=== PATIENT | female | born 1930 | race Caucasian/White ===

== ENCOUNTER 2019-04-19 21:01 | Inpatient (IN) ==
--- NOTE | 2019-04-19 22:24 | PROVIDER DOCUMENTATION ---
HPI-General Adult - General Chief Complaint: UTI Symptoms Stated Complaint: UTI Time Seen by Provider: 04/19/19 21:58 Source: patient, family Allergies/Adverse Reactions: Patient Allergies Allergy/AdvReac Type Severity Reaction Status Date / Time No Known Allergies Allergy Verified 01/25/14 17:54 Home Medications: Home Medication List Medication Instructions Recorded Confirmed Last Taken Type Losartan [Cozaar] 100 mg PO DAILY 11/11/14 04/20/19 Unknown History Docusate Sodium [Colace] 1 dose PO PRN PRN 04/20/19 04/20/19 Unknown History Furosemide [Lasix] 20 mg PO BID 04/20/19 04/20/19 Unknown History Metformin [Glucophage] 500 mg PO WSUPPER 04/20/19 04/20/19 Unknown History - History of Present Illness -Gen Adult Nature of Presenting Problems: 89 YO F who lives alone states her family came over to check on her and they said she was talking out of her head and decided to call EMS. Pt states that her home health nurse was telling her that she had a possible UTI, but had not been started on any antibiotics. Pt states possible fever. She endorses generalized weakness. she denies CP, n/v/abdominal pain. She states she normally ambulates with a walker but has been too weak to walk lately. She denies any other complaints. Location of Pain/Injury: reports: none Pain Radiation: reports: no radiation Quality of Pain: reports: none Onset/Duration: reports: 2 days ago Timing: reports: still present, getting worse Context/Activities at Onset: reports: none Modifying Factors: improves with: nothing Associated Symptoms: reports: loss of appetite, malaise, weakness. denies: cough, diarrhea, nausea, rash, shortness of breath, pain with inspiration, syncope Similar Symptoms Previously?: Yes Recently seen or treated by another doctor?: No Review of Systems - Adult - REVIEW OF SYSTEMS - ADULT Constitutional: denies: chills, fever Eyes: reports: no symptoms reported Ears, Nose, Mouth & Throat: reports: no symptoms reported Cardiovascular: denies: chest pain, palpitations, syncope Respiratory: denies: cough, dyspnea on exertion, shortness of breath, wheezing Gastrointestinal: reports: no symptoms reported Genitourinary: reports: no symptoms reported Musculoskeletal: reports: no symptoms reported Integumentary: reports: no symptoms reported Neurological: reports: other (weakness). denies: headache/migraines, numbness, syncope, tremors Past History - Adult - PAST MEDICAL HISTORY-ADULT Review of Records: reports: Old Records Reviewed, Social history reviewed & non- contributory. Cardiovascular: reports: HTN Musculoskeletal: reports: other (degenerative disc disease) Psychiatric: reports: denies history - PRIOR SURGERIES/PROCEDURES Surgical/Procedure History: denies: recent surgery - SOCIAL HISTORY Smoking: non-smoker Substance Use: denies Living Situation: alone Physical Exam-General - PHYSICAL EXAM-ADULT Initial Vital Signs Reviewed: Yes - CONSTITUTIONAL General Appearance: alert, no apparent distress - EYES Eyes: PERRL/EOMI, pink conjunctivae - HEAD, EARS, NOSE, MOUTH & THROAT HENMT: other (dry membranes) - NECK Neck: supple - RESPIRATORY Respiratory: lungs clear, normal breath sounds, no respiratory distress, no accessory muscle use - CARDIOVASCULAR Cardiovascular: regular rate, rhythm - GASTROINTESTINAL (ABDOMEN) Abdominal Exam: non tender, soft - MUSCULOSKELETAL Back Exam: no CVA tenderness Extremity: pedal edema - SKIN Integumentary: normal turgor, warm/dry, swelling, other (color change on LE consistent with arterial insuffiency) - NEUROLOGIC Neurologic: grossly normal, negative romberg's sign. negative: facial droop, focal weakness - PSYCHIATRIC Psych/Mental Status: normal mood/affect, oriented x 3 Progress - PLAN OF CARE/RESULTS Progress/Plan/Lab Results: Vital Signs - 8 hr 04/19/19 21:48 Temperature 99.6 F Pulse Rate 80 Respiratory Rate 18 Blood Pressure 166/64 O2 Sat by Pulse Oximetry 92 L Orders Category Date Time Status Cardiac Monitoring DIRECTED Care 04/19/19 22:24 Active NEWS Score 2-4:Order NEWS Lactate Series NOW Care 04/19/19 22:11 Active Nursing- Obtain EKG ONCE Care 04/19/19 22:23 Active CHEST-1 VIEW [RAD] Stat Exams 04/19/19 22:23 Ordered CBC WITH ELECTRONIC DIFF [HEME] Stat Lab 04/19/19 22:23 Uncollected COMPREHENSIVE METABOLIC PANEL [CHEM] Stat Lab 04/19/19 22:23 Uncollected INFLUENZA SCREEN A/B Stat Lab 04/19/19 22:23 Uncollected PRO B-NATRIURETIC PEPTIDE Stat Lab 04/19/19 22:23 Ordered TROPONIN T HIGH SENSITIVITY Stat Lab 04/19/19 22:23 Uncollected TSH Stat Lab 04/19/19 22:23 Uncollected URINALYSIS W/POSS RFLX CULT [URINALYSIS] Stat Lab 04/19/19 22:23 Uncollected EKG [EKG] Stat Ther 04/19/19 22:23 Ordered Result Diagrams: 05/03/19 07:10 05/03/19 07:10 - EKG 1 Time of EKG reading by physician:: 23:45 EKG Read and Signed by:: Leonel Marie EKG Interpretation (*Must complete 3 of following elements*): Abnormal Rate: 71 Rhythm: sinus rhythm with sinus arrhythmia Star: left QRS: LVH, other (widened QRS) ST Wave: normal Prior EKG Comparison: unchanged from prior (11/11/14) - CONSULTS/PCP/HOSPITALIST Notification #1 *Consult/PCP/Hospitalist*: Dr. Neal Time Discussed: 01:42 Consult Disposition: Will see in ED, Admit Departure - Departure Date of Disposition Decision: 04/20/19 Time of Disposition Decision: 00:30 DIAGNOSIS: CHF exacerbation, Pulmonary edema, Leg edema, left, Leg edema, right, UTI (urinary tract infection), NSTEMI (non-ST elevated myocardial infarction), Elevated troponin Disposition: ADMITTED INPATIENT 09 Certified Medical Emergency: Emergent Condition: Stable - Critical Care Note This patient required my direct & personal management of CC.: No Attestation - Physician/ SEAN Attestation Patient care was provided by Advanced Practice Provider:: No The physician spent face to face time with patient:: Yes Advanced Practice Provider documentation review:: Supervising physician onsite a nd consulted in the evaluation and care of this patient. The physician did have a face to face encounter with the patient.
[2019-04-19 23:05] LABS: BASO# 0.03 X1000 (0.0-0.2); BASO% 0.3 % (0.0-0.8); EOS# 0.17 X1000 (0.0-0.7); EOS% 1.8 % (0.0-10.0); HEMATOCRIT 27.6 % (37.0-47.0); HEMOGLOBIN 8.5 g/dL (12.0-16.0); IMM GRAN# 0.04 X1000 (0.0-0.04); IMM GRAN% 0.4 % (0.0-0.5); LYMPH# 0.51 X1000 (1.2-3.4); LYMPH% 5.4 % (20.5-51.1); MCH 28.7 PG (27-31); MCHC 30.8 g/dL (33-37); MCV 93.2 FL (81-99); MONO# 0.53 X1000 (0.11-0.59); MONO% 5.7 % (1.7-9.3); MPV 10.4 FL (7.4-10.4); NEUT# 8.08 X1000 (1.4-6.5); NEUT% 86.4 % (42.2-75.2); PLT 363 X1000 (130-400); RBC 2.96 XMIL (4.2-5.4); RDW 14.7 % (11.5-14.5); WBC 9.36 X1000 (4.8-10.8)
[2019-04-19 23:21] LABS: ALB/GLOB RATIO 1.1; ALBUMIN 3.1 g/dL (3.5-5.0); CALCIUM 9.4 mg/dL (8.8-10.2); CREATININE 1.2 mg/dL (0.5-0.9); TOTAL BILIRUBIN 0.61 mg/dL (0.20-1.00); TOTAL PROTEIN 5.9 g/dL (6.3-8.3)
[2019-04-20 00:47] LABS: URINE SOURCE CATH
[2019-04-20] MEDS ORDERED: LASIX IV ONE (01:18)
[2019-04-20 01:23] LABS: BILIRUBIN URINE NEGATIVE (NEGATIVE); BLOOD URINE NEGATIVE (NEGATIVE); COLOR YELLOW; GLUCOSE URINE NEGATIVE (NEGATIVE); KETONE URINE NEGATIVE (NEGATIVE); LEUKOCYTES URINE TRACE (NEGATIVE); NITRITE URINE POSITIVE (NEGATIVE); PH URINE 6.5; PROTEIN URINE TRACE mg/dL (NEGATIVE); TURBIDITY URINE HAZY (CLEAR); UROBILINOGEN URINE NORMAL (NORMAL)
[2019-04-20 01:26] LABS: UR EPITHELIAL CELLS <10 /HPF (<10); URINE BACTERIA 2+ /HPF; URINE RBC <10 /HPF (<10); URINE WBC <10 /HPF (<10)
[2019-04-20] MEDS ORDERED: ROCEPHIN 1 GM in NS 50 ML IV ONE (01:39)
[2019-04-20] MEDS ORDERED: ZOFRAN IV PRN (03:55)
[2019-04-20] MEDS ORDERED: ASPIRIN PO ONE (03:55)
--- NOTE | 2019-04-20 04:34 | EKG Report ---
Test Performed on : 04/19/2019 11:44:31 PM Test Reason : CP Blood Pressure : / mmHG Vent. Rate : 071 BPM Atrial Rate : 071 BPM P-R Int : 176 ms QRS Dur : 128 ms QT Int : 416 ms P-R-T Axes : 057 -47 126 degrees QTc Int : 452 ms Normal sinus rhythm. with sinus arrhythmia. Left axis deviation Left ventricular hypertrophy with QRS widening and repolarization abnormality Inferior infarct , age undetermined Abnormal ECG When compared with ECG of 11-NOV-2014 06:25, Significant changes have occurred Unconfirmed Result
--- NOTE | 2019-04-20 05:38 | Diag Imaging Result Doc PS360 ---
EXAM: CHEST-1 VIEW HISTORY: syncope TECHNIQUE: Single view COMPARISON: 11/13/2014 FINDINGS: The heart remains enlarged. There are infiltrates throughout the left lung with basilar atelectasis and a moderate-sized pleural effusion. There is also pulmonary edema. IMPRESSION: Cardiomegaly with pulmonary edema and left pleural effusion. There could be underlying infiltrates in the left lower lobe and lingular segment of the upper lobe as well. Electronically signed by Farshad Ferrari 04/20/2019 5:36 AM
[2019-04-20] MEDS: SYNTHROID PO SCH (06:08)
--- NOTE | 2019-04-20 06:33 | Diag Imaging Result Doc PS360 ---
CT HEAD W/O CONTRAST - 04/19/2019 INDICATION: AMS COMPARISON: 11/10/2014 FINDINGS: There has been worsening in the diffuse cerebral white matter chronic microvascular ischemia. No intracranial mass or hemorrhage. The ventricles and sulci are normal in size and contour. The skull is intact. There are mucosal retention cysts in the left maxillary sinus. Trace mucous in the right maxillary sinus. Severe vascular calcification of both carotid siphons and the vertebral arteries. IMPRESSION: Worsening chronic changes. No acute process. This exam was performed using automated exposure control, adjustment of mA or kV according to patient size, and/or use of iterative reconstruction technique Electronically signed by Omar Pedro 04/20/2019 6:31 AM
--- NOTE | 2019-04-20 06:36 | HISTORY AND PHYSICAL ---
PRIMARY CARE PHYSICIAN: Benedicto Springer MD CHIEF COMPLAINT: Confusion. HISTORY OF PRESENTING ILLNESS: An 89-year-old female with a history of hypertension, anemia, and cervical spinal stenosis who was brought to the emergency department due to the patient having confusion. The patient was evaluated in the emergency department. She was still somewhat confused, and most of the history is obtained from previous records. During initial evaluation, it was noted that her troponin was also elevated. However, she had denied any headache, fever, chills, chest pain, shortness of breath, or any weight changes. PAST MEDICAL HISTORY: Includes hypertension, anemia, cervical spinal stenosis. PAST SURGICAL HISTORY: Cataract surgery. ALLERGIES: No known drug allergies. CURRENT MEDICATIONS: Include hydrochlorothiazide 25 mg p.o. daily, losartan 100 mg p.o. daily. SOCIAL HISTORY: No history of smoking, alcohol or illicit drug use. She lives alone. FAMILY HISTORY: Positive for coronary disease in the father. REVIEW OF SYSTEMS: A 14-point review of systems listed as HPI. Other systems negative. PHYSICAL EXAMINATION: GENERAL: Cooperative, friendly female. She is resting comfortably. However, she is somewhat confused. VITAL SIGNS: Temperature 99.6 degrees, pulse 80, respirations 18, blood pressure 166/64. HEENT: Atraumatic, normocephalic. Extraocular movements intact. PERRLA. NECK: No masses. CHEST: Clear to auscultation. CARDIOVASCULAR: Regular rate and rhythm. ABDOMEN: Soft. Positive bowel sounds. EXTREMITIES: Trace edema. NEUROLOGIC: She is awake, alert, oriented x2. GENITOURINARY: No bladder distention. SKIN: Warm. LABORATORIES AND STUDIES: WBC 9.36, hemoglobin 8.5, hematocrit 27.6, platelets 363,000. Sodium 134, potassium 4, chloride 94, CO2 is 26, BUN is 20, creatinine is 1.2, glucose 133. Troponin is 350. TSH is 47.94. UA is nitrite positive and +2 bacteria. ASSESSMENT: An 89-year-old elderly female with a history of hypertension, anemia, and cervical spinal stenosis who was brought to the emergency department due to confusion. She was evaluated in the emergency department. I suspected she had a urinary tract infection, and also, it was noted that her troponins were elevated. Due to these findings, she will require admission for further management. 1. Altered mental status. 2. Elevated troponin. 3. Probable urinary tract infection. 4. Hypertension. PLAN: 1. We will admit patient to PVC. 2. We will check neurological checks. 3. We will trend her troponins and consult Cardiology. 4. We will check urine cultures. Start the patient on IV antibiotics. 5. We will monitor blood pressure closely. 6. We will put the patient on DVT prophylaxis with SCDs and Lovenox. 7. We will continue to follow, reassess, and make further recommendations based on the patient's clinical course. cc: Sven Neal MD
[2019-04-20] MEDS: NS 1,000 ML IV SCH ×2 (09:52→23:02)
--- NOTE | 2019-04-20 09:53 | EKG Report ---
Test Performed on : 04/20/2019 09:39:41 AM Test Reason : elevated troponins Blood Pressure : / mmHG Vent. Rate : 060 BPM Atrial Rate : 060 BPM P-R Int : 182 ms QRS Dur : 128 ms QT Int : 482 ms P-R-T Axes : 067 -46 119 degrees QTc Int : 482 ms Sinus rhythm. with premature atrial complexes. with aberrant conduction. Left axis deviation Left ventricular hypertrophy with QRS widening and repolarization abnormality Inferior infarct (cited on or before 10-NOV-2014) Abnormal ECG When compared with ECG of 19-APR-2019 23:44, (Unconfirmed) aberrant conduction. is now present Confirmed by Billy Toledo MD ([id number]) on 04/20/2019 4:20:35 PM
[2019-04-20 10:49] LABS: BASO# 0.03 X1000 (0.0-0.2); BASO% 0.4 % (0.0-0.8); EOS# 0.31 X1000 (0.0-0.7); EOS% 3.9 % (0.0-10.0); HEMATOCRIT 28.5 % (37.0-47.0); HEMOGLOBIN 8.8 g/dL (12.0-16.0); IMM GRAN# 0.02 X1000 (0.0-0.04); IMM GRAN% 0.2 % (0.0-0.5); LYMPH# 0.39 X1000 (1.2-3.4); LYMPH% 4.9 % (20.5-51.1); MCHC 30.9 g/dL (33-37); MCV 94.1 FL (81-99); MONO# 0.76 X1000 (0.11-0.59); MONO% 9.5 % (1.7-9.3); MPV 10.5 FL (7.4-10.4); NEUT# 6.53 X1000 (1.4-6.5); NEUT% 81.1 % (42.2-75.2); PLT 346 X1000 (130-400); RBC 3.03 XMIL (4.2-5.4); RDW 14.8 % (11.5-14.5); WBC 8.04 X1000 (4.8-10.8)
[2019-04-20 11:29] LABS: ALBUMIN 2.7 g/dL (3.5-5.0); CALCIUM 9.7 mg/dL (8.8-10.2); CREATININE 1.3 mg/dL (0.5-0.9); PHOSPHORUS 3.1 mg/dL (2.7-4.5)
[2019-04-20 11:52] LABS: RETIC% 1.82 % (0.8-2.1); RETIC-HE 24.6 PG (28.2-36.6)
[2019-04-20 12:23] LABS: HEMOGLOBIN A1C 6.7 % (4.8-6.0)
[2019-04-20 13:47] LABS: ALLEN TEST YES; BE 9.2 mmoll (-3.0-3.0); BLOOD TYPE ARTERIAL; HCO3-(ACT) 32.1 mmoll (20.0-26.0); METHB 0.5 % (0.0-1.5); O2(CT) 13.8 mL/dL (15.0-23.0); O2HB 96.9 % (95.0-99.0); PCO2(98.6) 44 mmHg (35-45); PO2(98.6) 97 mmHg (60-100); SAMPLE BLOOD; SAO2 100.1 % (95.0-100.0); pH(98.6) 7.49 (7.35-7.45)
[2019-04-20 13:48] LABS: MODALITY CANNULA
--- NOTE | 2019-04-20 15:15 | CARDIOLOGY CONSULTATION ---
DATE: 04/20/2019 CHIEF COMPLAINT: Confusion. REASON FOR CONSULTATION: Elevated troponin. HISTORY: Ms. Cameron is an 89-year-old, female, who presented to the emergency room yesterday because the family noted that she had become confused. Also, the home health nurse noted that her urine was somewhat darker than usual. Her temperature was checked and it was found to be a little elevated by the home health nurse. The patient, upon presentation, had a urinalysis that showed positive nitrates and 2+ bacteria. Her chest x-ray done initially at 10:23 p.m. shows cardiomegaly with pulmonary edema and left pleural effusion, with suspected underlying infiltrates in the left lower lobe and lingular segment of the upper lobe as well. A head CT showed worsening chronic microvascular changes. No acute findings. A 12-lead electrocardiogram was done at 11:44 p.m. and it shows sinus rhythm with a nonspecific intraventricular conduction delay with left ventricular hypertrophy, left axis deviation, poor R-wave progression across the precordial leads, question of anterior scar. They checked the usual blood work. BUN was 21, creatinine 1.3. Hemoglobin A1c 6.7%. Albumin 2.7 grams/dL. LDL cholesterol 109, HDL 31. A TSH has been checked and is elevated at 47.94 micro international units/mL, which is about 10 times the upper normal. ProBNP level has been checked and is 3307 pg/mL. They checked high-sensitivity troponin levels, and the values are 350, 374, and 369 pg/mL. The patient has not reported any chest pain or shortness of breath. She does have some chronic mild puffiness of the legs. PAST MEDICAL HISTORY: Basically positive for hypertension. She also has history of chronic anemia. Her hemoglobin at the time of this admission is 8.8, normochromic, with a slightly elevated RDW. Her history is also positive for cervical spinal stenosis. PAST SURGICAL HISTORY: Cataract extraction. SOCIAL HISTORY: She is retired. She is a . Lives at home. Son lives next door to her. The one in the bedroom is the [id number], who knows her well. Not a drinker. Not a smoker. FAMILY HISTORY: Father had coronary heart disease. ALLERGIES: Negative. FAMILY PHYSICIAN: Dr. Springer. HOME MEDICATIONS: Included furosemide 20 mg twice a day, losartan 100 mg daily, metformin 500 mg with supper, and docusate. REVIEW OF SYSTEMS: The patient has been gradually slowing down as far as physical action. They just got the home health nurses to come in and give her therapy at home and ambulate with therapy. Her history is negative for any cardiovascular condition. PHYSICAL EXAMINATION: Vital Signs: Blood pressure is 125/53, temperature is 98.3 degrees, pulse rate is 61, respirations 13. General: The patient is awake, in no distress. HEENT: Unremarkable. She does have a sluggish answer when I present questions to her, and her face is slightly puffy at the level of the eyelids. She really looks hypothyroid. Neck: Neck veins are not distended. Chest: Diminished breath sounds at bases. Heart: Heart sounds are regular and rhythmic. I do not hear any definite gallop or murmur. Abdomen: Obese, nontender. Extremities: Trace brawny edema. Pulses are diminished. Neurologic: Nonfocal. Moves all 4 extremities. She is sluggish, answering questions. IMPRESSION: 1. The patient presents to the hospital with possible early septicemia or sepsis-like issues. Urinary tract infection is suspected. 2. Bilateral pleural effusions with cardiomegaly. This may relate to long-term hypertensive heart disease and diastolic heart failure. 3. The patient is evidently hypothyroid.m(Clinical Myxedema). 4. Poor functional status. 5. Elevated HS Troponin: possible non ST IA, more than likely, combination of heart failure/hypothyroidism with pericardial effusion and perhaps CAD. RECOMMENDATION: We are going to check a number of inflammatory markers. I am going to check C- reactive protein, sedimentation rate, procalcitonin. Will look at the echocardiogram. We are going to get a CT scan of the thorax. Further advice will be forthcoming. We probably would not like to be very aggressive with diuresis at this time until we get a better grasp of the whole picture. The troponin elevation is really probably inconsequential. It may relate to renal dysfunction,hypothyroidism, the heart failure itself, although the patient may well have coronary heart disease. At this point, it does not seem like we are going to be chasing that diagnosis. In addition, because of her hypothyroidism, obesity (she has a body mass index of 38.1), and her seemingly acute encephalopathy that is improving, I will check a blood gas to make sure that she is not a CO2 retainer. She has all the looks of somebody that may have chronic sleep apnea syndrome. Further advice will be forthcoming. cc: Kirk Nino MD MTDD
--- NOTE | 2019-04-20 23:11 | ECHO REPORT ---
ORDER DATE: 04/20/2019 MEASUREMENTS: Septal thickness 1.3, left ventricular internal diameter in diastole 4.8, posterior wall thickness 1.3, left ventricular internal diameter in systole 2.9, aortic root 3.6, left atrium 5.6. SUMMARY: 1. Fair quality study. 2. The aortic valve is trileaflet and demonstrates mild sclerosis with adequate aortic valve opening evident. The peak gradient across the aortic valve is 17 mmHg. Calculated aortic valve area by Doppler is greater than 2.5 cm2. The mitral valve is not well imaged, but mitral leaflets appear moderately thickened with reduced mobility. The peak diastolic gradient across the mitral valve is 8 mmHg with a mean gradient of 3.3 mmHg, at a heart rate of approximately 60 beats per minute. The calculated mitral valve area by pressure half-time method is 1.7 cm2. Mild mitral regurgitation is demonstrated. Tricuspid valve is without evidence of structural abnormality, with mild tricuspid regurgitation. The estimated systolic PA pressure by Doppler is 55 mmHg, suggesting moderate pulmonary hypertension. The pulmonic valve is without evidence of structural abnormality. The aortic root is normal in size. 3. Normal left ventricular chamber size with mild to moderate concentric left ventricular hypertrophy is demonstrated. The estimated left ventricular ejection fraction appears to be at least 70%. No regional wall motion abnormalities are evident. The left atrium is severely enlarged. The right atrium and right ventricle are normal size with preserved right ventricular systolic function. 4. Small posterior pericardial effusion demonstrated, with 1.5 cm of pericardial separation posteriorly. 5. Left pleural effusion evident. 6. Appearance of inferior vena cava suggests elevated central venous pressure. CONCLUSIONS: 1. Mild aortic valve sclerosis without stenosis. 2. Moderate mitral stenosis with mild mitral regurgitation. 3. Mild tricuspid regurgitation with moderate pulmonary hypertension by Doppler. 4. Mild to moderate concentric left ventricular hypertrophy with estimated left ventricular ejection fraction at least 70%. 5. Severe left atrial enlargement. 6. Small posterior pericardial effusion without echocardiographic evidence of hemodynamic significance. 7. Left pleural effusion. 8. Elevated central venous pressure is suggested. cc: MD Kirk Junior MD
[2019-04-21] MEDS ORDERED: ROCEPHIN 1 GM in NS 50 ML IV SCH (03:55)
[2019-04-21] MEDS: SYNTHROID PO SCH (06:13)
[2019-04-21 06:16] LABS: BASO# 0.02 X1000 (0.0-0.2); BASO% 0.2 % (0.0-0.8); EOS# 0.38 X1000 (0.0-0.7); HEMOGLOBIN 8.5 g/dL (12.0-16.0); IMM GRAN# 0.03 X1000 (0.0-0.04); IMM GRAN% 0.3 % (0.0-0.5); LYMPH# 0.38 X1000 (1.2-3.4); MCH 28.7 PG (27-31); MCHC 30.4 g/dL (33-37); MCV 94.6 FL (81-99); MONO# 0.66 X1000 (0.11-0.59); MPV 10.7 FL (7.4-10.4); NEUT# 8.02 X1000 (1.4-6.5); NEUT% 84.5 % (42.2-75.2); PLT 389 X1000 (130-400); RBC 2.96 XMIL (4.2-5.4); RDW 14.9 % (11.5-14.5); WBC 9.49 X1000 (4.8-10.8)
[2019-04-21 06:42] LABS: CALCIUM 8.9 mg/dL (8.8-10.2); CREATININE 1.2 mg/dL (0.5-0.9); POTASSIUM 3.5 mmol/L (3.5-5.1)
--- NOTE | 2019-04-21 07:51 | Diag Imaging Result Doc PS360 ---
CT THORAX W/O CONTRAST - 04/20/2019 INDICATION: Pleural effusions, dyspnea COMPARISON: 11/10/2014 FINDINGS: There is severe calcification of the mitral valve annulus stable from prior. There is a large pericardial effusion that has enlarged since prior. There is moderate cardiomegaly. There is a small left pleural effusion. There is dense consolidation of the left lower lobe. There is patchy infiltrate in the left upper lobe. There is some mild atelectasis and interstitial edema in the right lung base. There is a partially calcified gallstone in the gallbladder similar to prior. No evidence of gallbladder inflammation. Upper abdominal images are otherwise unremarkable. There are moderate degenerative changes of the spine. No acute or suspicious bony lesion. IMPRESSION: 1. Cardiomegaly. Large pericardial effusion that has enlarged from prior. Severe calcification of the mitral valve annulus concerning for mitral stenosis. 2. Dense infiltrates in the left lung suggesting pneumonia. Small left pleural effusion. 3. Minimal pulmonary edema in the lung bases. This exam was performed using automated exposure control, adjustment of mA or kV according to patient size, and/or use of iterative reconstruction technique Electronically signed by Omar Pedro 04/21/2019 7:48 AM
--- NOTE | 2019-04-21 08:11 | CARDIOLOGY PROGRESS NOTE ---
DATE: 04/21/2019 CHIEF COMPLAINT: Confusion, shortness of breath. SUBJECTIVE: The patient is more with it today. She is very sluggish to answer. She really has a facial expression of myxedema patients. She is comfortable. OBJECTIVE: Vital signs: Blood pressure is 132/44, temperature 98.2, pulse 75, respirations 24. General: The patient is awake, alert, sluggish. Somewhat pale. HEENT: Unremarkable. Chest: Diminished breath sounds especially in the left lung. Heart: Sounds regular and rhythmic. No gallop or murmur. Abdomen: Nontender. No masses, no hepatomegaly. Extremities: Showed some pretibial erythema. Neurologic exam: Follows commands, moves all 4 extremities. BLOOD WORK: Sodium 135, potassium 3.5, BUN 23, creatinine 1.2, carbon dioxide 30, chloride 93. IMPRESSION: 1. Patient who presents with confusion. 2. Clinical evidence of myxedema. 3. Pericardial effusion. This probably is part of the complex symptom of myxedema. 4. Elevation of troponin. I suspect this is pericarditis in combination with her possible left lower lobe pneumonia. Her echocardiogram yesterday showed some degree of mitral stenosis 1.7 cm2, which is mild really, with mild mitral regurgitation. The computed tomography of the chest shows heavy calcification of the annulus of the mitral valve. The echocardiogram also showed a small posterior pericardial effusion and there is mild aortic valve sclerosis. Her ejection fraction by echocardiography was excellent at 70%. There was severe left atrial enlargement. Her troponin levels at this time are mildly elevated 405 ng/L. C-reactive protein is very high at 243 mg/L. Her EKG shows sinus rhythm with LVH, IVCD, and PVCs. RECOMMENDATIONS: At this time, I would suggest to treat this patient as a case of pneumonia, hypothyroidism, and pericarditis. She probably requires broad-spectrum antibiotics for pneumonia, thyroid hormonal replacement, and probably methylprednisolone to prevent adrenal crisis and also to help with the inflammatory process. We will be very happy to see her down the road. At this time cardiac-hutchinson, I believe she is stable and no specific cardiac intervention is advised. cc: Kirk Nino MD
[2019-04-21] MEDS: LASIX IV SCH (08:38)
[2019-04-21] MEDS: ZOSYN 3.375 GM in NS 50 ML IV SCH ×3 (08:38→20:05)
[2019-04-21] MEDS: SOLU-MEDROL IV SCH ×2 (08:38→16:39)
[2019-04-21] MEDS: ZYVOX 600 MG/D5W 600 MG/300 ML IVPB IV SCH ×2 (08:39→20:05)
[2019-04-21] MEDS: LOVENOX SUBQ SCH (08:39)
[2019-04-21] MEDS: PROTONIX PO SCH (08:39)
--- NOTE | 2019-04-21 08:40 | PROGRESS NOTE ---
DATE: 04/21/2019 SUBJECTIVE: Patient is more alert and awake. Her speech is still slow but better in comparing with admission. No chest pain reported. OBJECTIVE: Vital Signs: Temperature 98.2 degrees, heart rate 75, respiratory rate 24, blood pressure 132/44, O2 saturation 97% on 2 L nasal cannula. General Examination: This is an 89-year- old female lying in bed, in no acute distress. Cardiovascular: S1, S2 heard. No murmurs, gallops, or rubs. Regular rate and rhythm. Respiratory: Clear bilaterally. Decreased breath sounds globally mostly at the bases. The patient is not using any accessory muscles or having work of breathing. Abdomen: Soft, obese, nontender to palpation. Bowel sounds present. No organomegaly. Extremities: Trace edema in both lower extremities. Peripheral pulses present but diminished. Neurological: Patient is awake, low in her speech. Moves 4 extremities. Follows basic commands. LABORATORY DATA: White cell count 9.49, hemoglobin 8.5, hematocrit 28.0, platelets 389,000 with BMP that reveals creatinine 1.3 with sodium 135. Glucose 192, hemoglobin A1c 6.7. ASSESSMENT AND PLAN: 1. Sepsis secondary to urinary tract infection. Patient has been started on ceftriaxone but because we found that this patient also has a pneumonia we switched antibiotics to Zyvox and Zosyn. 2. Hypertensive heart disease/acute diastolic heart failure. The patient has bilateral pleural effusion, cardiomegaly and actually in the CT of the chest it shows large pericardial effusion that has enlarged from prior so at this point, we will place this patient on IV steroids. Patient has received 1 dose of Lasix and I think we are going to provide Lasix on a daily basis in this case, 40 mg daily. We will in's and out's closely. 3. Hypothyroidism. TSH is very elevated so at this point, I will change oral levothyroxine to IV levothyroxine and see how this patient does. Definitely that may be playing an important role in the pericardial effusion. Will continue to monitor. 4. Possible non ST-segment elevation myocardial infarction. Troponin has been very high. Cardiology has been consulted. Apparently they are not going to do any ischemic workup at this time, we will continue to monitor. 5. Community-acquired pneumonia. Patient is going to be started on Zosyn and Zyvox. Will continue to monitor this patient closely. 6. Disposition. We will continue to monitor this patient closely. cc: Shaan Stevenson MD
[2019-04-22] MEDS: SOLU-MEDROL IV SCH ×4 (00:56→23:52)
[2019-04-22] MEDS: ZOSYN 3.375 GM in NS 50 ML IV SCH ×4 (01:00→20:00)
--- NOTE | 2019-04-22 08:02 | PROGRESS NOTE ---
DATE: 04/22/2019 SUBJECTIVE: Patient is definitely a little bit more awake today. His speech is still low, but definitely alert in place and person as well. No chest pain reported. No shortness of breath. OBJECTIVE: Vital Signs: Temperature 97.7 degrees, heart rate 61, respiratory rate 17, blood pressure 189/71, O2 saturation 96% on 2 L nasal cannula. General Examination: This is a chronically ill-appearing, 89-year-old female, lying in bed in no distress. Cardiovascular Exam: S1, S2 heard. No murmurs, gallops, or rubs. Regular rate and rhythm. Respiratory Exam: Decreased breath sounds globally, mostly in both bases. Patient not using any accessory muscles or having work of breathing. Abdomen: Soft, obese, nontender to palpation. Bowel sounds present. No organomegaly. Extremities: The patient's edema noted in both lower extremities. Peripheral pulses present in both legs, but diminished. Neurological Exam: Patient is awake, slow in her speech, but moves 4 extremities spontaneously and follows basic commands. LABORATORY DATA: Pending at the time of my dictation. ASSESSMENT AND PLAN: 1. Sepsis secondary to urinary tract infection. Currently, this patient is receiving Zyvox and Zosyn for pneumonia, that is of course causing this urinary tract infection as well. Urine culture shows gram-negative rods; so, we will continue with the same management right now. 2. Acute diastolic heart failure. The patient has bilateral pleural effusions, cardiomegaly and large pericardial effusion. Patient is on Lasix 40 mg intravenous daily. We will continue with the same management. 3. Hypothyroidism. We will continue with intravenous levothyroxine. 4. Possible non ST-segment elevation myocardial infarction. Troponin has being very high, but Cardiology is not going to pursue any ischemia workup at this time. 5. Community-acquired pneumonia. We will continue with Zosyn and Zyvox. We will continue with same management. 6. Disposition: We will continue to monitor this patient closely. cc: Shaan Stevenson MD
[2019-04-22 08:17] LABS: BASO# 0.01 X1000 (0.0-0.2); BASO% 0.1 % (0.0-0.8); EOS# 0.03 X1000 (0.0-0.7); EOS% 0.3 % (0.0-10.0); HEMATOCRIT 33.3 % (37.0-47.0); HEMOGLOBIN 10.2 g/dL (12.0-16.0); IMM GRAN# 0.03 X1000 (0.0-0.04); IMM GRAN% 0.3 % (0.0-0.5); LYMPH# 0.38 X1000 (1.2-3.4); LYMPH% 3.6 % (20.5-51.1); MCH 28.6 PG (27-31); MCHC 30.6 g/dL (33-37); MCV 93.3 FL (81-99); MONO# 0.29 X1000 (0.11-0.59); MONO% 2.7 % (1.7-9.3); MPV 10.5 FL (7.4-10.4); NEUT# 9.84 X1000 (1.4-6.5); PLT 449 X1000 (130-400); RBC 3.57 XMIL (4.2-5.4); RDW 14.6 % (11.5-14.5); WBC 10.58 X1000 (4.8-10.8)
[2019-04-22] MEDS: NORVASC PO SCH ×2 (08:25→20:36)
[2019-04-22] MEDS: PROTONIX PO SCH (08:25)
[2019-04-22] MEDS: LASIX IV SCH (08:25)
[2019-04-22] MEDS: SYNTHROID IV SCH (08:28)
[2019-04-22] MEDS: LOVENOX SUBQ SCH (08:30)
[2019-04-22 08:54] LABS: CALCIUM 10.1 mg/dL (8.8-10.2); CREATININE 1.5 mg/dL (0.5-0.9); PHOSPHORUS 3.4 mg/dL (2.7-4.5); POTASSIUM 4.3 mmol/L (3.5-5.1)
[2019-04-22] MEDS ORDERED: COZAAR PO SCH (09:00)
[2019-04-22] MEDS: ZYVOX 600 MG/D5W 600 MG/300 ML IVPB IV SCH ×2 (09:22→20:35)
[2019-04-22 09:56] LABS: ANISOCYTOSIS 2+; HYPOCHROM 1+; LYMPHS 3 % (21-51); MONO 3 % (1-9); SEGS 94 % (42-75)
[2019-04-22 09:57] LABS: HOWELL-JOLLY BODIES OCCASIONAL
[2019-04-22] MEDS ORDERED: LASIX IV ONE (14:09)
--- NOTE | 2019-04-22 14:36 | Diag Imaging Result Doc PS360 ---
EXAM: CHEST-PORTABLE 04/22/2019 HISTORY: Change in breathing and generalized edema. TECHNIQUE: AP portable upright at 1422 COMMENT: There is increased opacification of the left hemithorax which is probably related to increasing pleural effusion. There is atelectasis or pneumonia in the left lower lobe and lingula. The right lung is essentially clear and unchanged since 04/19/2019. IMPRESSION: Worsening pleural effusion and atelectasis on the left. Electronically signed by Alvarez Pritchard 04/22/2019 2:33 PM
[2019-04-22] MEDS ORDERED: BLISTEX MEDICATED BERRY LIP BALM TOP PRN (14:52)
[2019-04-22 15:17] LABS: ALLEN TEST YES; BE 3.2 mmoll (-3.0-3.0); BLOOD TYPE ARTERIAL; HCO3-(ACT) 27.2 mmoll (20.0-26.0); O2(CT) 17.9 mL/dL (15.0-23.0); O2HB 91.1 % (95.0-99.0); PCO2(98.6) 48 mmHg (35-45); PO2(98.6) 63 mmHg (60-100); SAMPLE BLOOD; SAO2 93.7 % (95.0-100.0); pH(98.6) 7.39 (7.35-7.45)
[2019-04-22 15:19] LABS: MODALITY CANNULA
[2019-04-23] MEDS: ZOSYN 3.375 GM in NS 50 ML IV SCH ×4 (02:04→22:15)
[2019-04-23] MEDS: SYNTHROID IV SCH ×2 (05:25→06:00)
[2019-04-23] MEDS: SODIUM CHLORIDE 0.9% INJ PRN (05:26)
[2019-04-23 07:31] LABS: HEMATOCRIT 32.2 % (37.0-47.0); HEMOGLOBIN 9.9 g/dL (12.0-16.0); IMM GRAN# 0.07 X1000 (0.0-0.04); IMM GRAN% 0.5 % (0.0-0.5); LYMPH# 0.44 X1000 (1.2-3.4); MCH 28.5 PG (27-31); MCHC 30.7 g/dL (33-37); MCV 92.8 FL (81-99); MONO# 0.46 X1000 (0.11-0.59); MONO% 3.2 % (1.7-9.3); MPV 10.6 FL (7.4-10.4); NEUT# 13.49 X1000 (1.4-6.5); NEUT% 93.3 % (42.2-75.2); PLT 489 X1000 (130-400); RBC 3.47 XMIL (4.2-5.4); RDW 14.2 % (11.5-14.5); WBC 14.46 X1000 (4.8-10.8)
[2019-04-23 07:53] LABS: ALBUMIN 3.2 g/dL (3.5-5.0); CALCIUM 9.8 mg/dL (8.8-10.2); CREATININE 1.6 mg/dL (0.5-0.9); PHOSPHORUS 3.3 mg/dL (2.7-4.5); POTASSIUM 4.2 mmol/L (3.5-5.1)
[2019-04-23] MEDS ORDERED: LANTUS INSULIN SUBQ SCH (09:00)
--- NOTE | 2019-04-23 09:45 | PROGRESS NOTE ---
DATE: 04/23/2019 SUBJECTIVE: Patient reports feeling okay. She continues to be awake and alert. OBJECTIVE: Vital Signs: Temperature 97.6 degrees, heart rate 69, respiratory 17, blood pressure 152/64, O2 saturation 94% on 2 L nasal cannula. General Examination: This is an 89-year-old female lying in bed, in no acute distress. Cardiovascular: S1, S2 heard. No murmurs, gallops, or rubs. Regular rate and rhythm. Respiratory: Decreased breath sounds globally with absent breath sounds in the left base. The patient is not using any accessory muscles or having work of breathing. Abdomen: Soft, obese, nontender to palpation. Bowel sounds present. No organomegaly. Extremity: Lower extremity edema noted in both legs. Peripheral pulses present. Neurological: Patient is alert. A little bit slow in her speech but moves 4 extremities spontaneously, follows basic commands. Oriented in place and person. LABORATORY DATA: White cell count 14.46, hemoglobin 9.9, hematocrit 32.2, platelets 49,000 with BMP that reveals creatinine 1.6, glucose 406. The x-ray from yesterday shows worsening pleural effusion and atelectasis on the left. ASSESSMENT AND PLAN: 1. Acute respiratory failure secondary to acute diastolic heart failure/left pleural effusion. Patient has bilateral pleural effusion and the left has been getting worse. I think at this point, we need to do a thoracentesis. Will do US guided thoracentesis. Because of worsening renal failure, we are going to us hold Lasix today and will see how this patient's renal function is doing tomorrow. 2. Community-acquired pneumonia. We will continue with Zosyn and Zyvox. White cell count is a little bit elevated. We will continue to monitor CBC. 3. Sepsis secondary to urinary tract infection. Patient is on Zosyn for UTI secondary to Escherichia coli. We will continue to monitor. 4. Disposition. We will continue to monitor this patient closely. cc: MD PABLO Randall
[2019-04-23] MEDS: ZYVOX 600 MG/D5W 600 MG/300 ML IVPB IV SCH ×2 (10:17→20:26)
[2019-04-23] MEDS: NORVASC PO SCH ×2 (10:18→20:24)
[2019-04-23] MEDS: LOVENOX SUBQ SCH (10:18)
[2019-04-23] MEDS: PROTONIX PO SCH (10:18)
[2019-04-23] MEDS: SOLU-MEDROL IV SCH ×2 (10:23→16:27)
[2019-04-23] MEDS: LOPRESSOR PO SCH ×3 (10:23→20:25)
[2019-04-23 15:28] LABS: INR 1.12; PROTIME 14.6 Seconds (11.0-16.0)
[2019-04-23 15:29] LABS: PTT 45.5 Seconds (22.3-41.8)
--- NOTE | 2019-04-23 16:19 | Diag Imaging Result Doc PS360 ---
Left chest ultrasound - 04/23/2019 INDICATION: Pleural effusion TECHNIQUE: COMPARISON: Chest CT 04/20/2019 FINDINGS: There is a small left pleural effusion. This measures about 10 x 4 cm maximally. There is no right pleural effusion. IMPRESSION: Small left pleural effusion. Procedure not performed. Electronically signed by Omar Pedro 04/23/2019 4:17 PM
[2019-04-23] MEDS: HUMALOG SUBQ SCH ×4 (16:24→22:16)
[2019-04-23] MEDS: LANTUS INSULIN SUBQ SCH (22:15)
[2019-04-24] MEDS: SOLU-MEDROL IV SCH ×3 (00:17→17:38)
[2019-04-24] MEDS: LOPRESSOR PO SCH ×4 (04:06→20:57)
[2019-04-24] MEDS: ZOSYN 3.375 GM in NS 50 ML IV SCH ×3 (04:07→21:02)
[2019-04-24] MEDS: SYNTHROID IV SCH (06:26)
[2019-04-24] MEDS: SODIUM CHLORIDE 0.9% INJ PRN (06:26)
[2019-04-24] MEDS: HUMALOG SUBQ SCH ×4 (06:43→20:56)
[2019-04-24 08:14] LABS: ALBUMIN 2.6 g/dL (3.5-5.0); CALCIUM 9.4 mg/dL (8.8-10.2); CREATININE 1.7 mg/dL (0.5-0.9); PHOSPHORUS 2.9 mg/dL (2.7-4.5)
[2019-04-24 08:58] LABS: EOS# 0.01 X1000 (0.0-0.7); EOS% 0.1 % (0.0-10.0); HEMATOCRIT 31.2 % (37.0-47.0); HEMOGLOBIN 9.5 g/dL (12.0-16.0); IMM GRAN# 0.08 X1000 (0.0-0.04); IMM GRAN% 0.6 % (0.0-0.5); LYMPH# 0.36 X1000 (1.2-3.4); LYMPH% 2.6 % (20.5-51.1); MCH 28.4 PG (27-31); MCHC 30.4 g/dL (33-37); MCV 93.1 FL (81-99); MONO# 0.59 X1000 (0.11-0.59); MONO% 4.3 % (1.7-9.3); MPV 10.7 FL (7.4-10.4); NEUT% 92.4 % (42.2-75.2); PLT 500 X1000 (130-400); RBC 3.35 XMIL (4.2-5.4); RDW 14.3 % (11.5-14.5); WBC 13.84 X1000 (4.8-10.8)
[2019-04-24] MEDS: ZYVOX 600 MG/D5W 600 MG/300 ML IVPB IV SCH ×2 (09:01→20:57)
[2019-04-24] MEDS: LOVENOX SUBQ SCH (09:01)
[2019-04-24] MEDS: PROTONIX PO SCH (09:02)
[2019-04-24] MEDS: NORVASC PO SCH ×2 (09:02→20:57)
[2019-04-24] MEDS: LANTUS INSULIN SUBQ SCH ×2 (09:02→20:56)
--- NOTE | 2019-04-24 09:30 | PROGRESS NOTE ---
DATE: 04/24/2019 SUBJECTIVE: The patient reports feeling better. Denies any fever or chills. She is awake, eating okay. OBJECTIVE: Vital Signs: Temperature 97.3 degrees, heart rate 54, respiratory rate 16, blood pressure 140/52. O2 saturation 95% on 2 L nasal cannula. General: This is an 89-year-old female lying in bed, in no acute distress. Cardiovascular: S1, S2 heard. No murmurs, gallops, or rubs. Regular rate and rhythm. Respiratory: Decreased breath sounds globally with decreased breath sounds in the left base. The patient is not using any accessory muscles or having work of breathing. Abdomen: Soft. Nontender to palpation. Bowel sounds present. No organomegaly. Extremities: Mild lower extremity edema noted in both legs. Peripheral pulses present. Neurological: Patient is alert, a little bit slow in her speech but I think it is at her baseline. ASSESSMENT AND PLAN: 1. At this point, the patient is stable we have seen a left pleural effusion that was getting worse. We tried to do a thoracenteses but apparently we did not find enough fluid to remove so at this point, we will continue with same management. 2. Volume overload with pleural effusion. The patient has been held Lasix because of worsening renal function. I plan to observe her for today and if renal function is stabilized around 1.6 or 1.7 and then we will restart Lasix. 3. Community-acquired pneumonia. We will continue with Zyvox and Zosyn. I do not have the results of the labs from today but we will continue to monitor CBC daily. 4. Sepsis secondary to Escherichia coli UTI. We will continue current management. 5. Disposition. We will continue to monitor this patient closely. 6. Pericardial effusion. At this point, we are going to monitor. Will restart Lasix tomorrow if renal function is getting better or it is stable. cc: Shaan Stevenson MD MTDD
[2019-04-24 10:59] LABS: BANDS 4 % (0-1); LYMPHS 10 % (21-51); SEGS 86 % (42-75)
[2019-04-25] MEDS: LOPRESSOR PO SCH ×5 (02:17→21:05)
[2019-04-25] MEDS: SOLU-MEDROL IV SCH ×2 (02:18→13:01)
[2019-04-25] MEDS: ZOSYN 3.375 GM in NS 50 ML IV SCH ×4 (03:45→21:06)
[2019-04-25] MEDS: SYNTHROID IV SCH (07:02)
[2019-04-25] MEDS: SODIUM CHLORIDE 0.9% INJ PRN (07:02)
[2019-04-25] MEDS: HUMALOG SUBQ SCH ×4 (07:03→21:05)
[2019-04-25 07:34] LABS: ALBUMIN 2.9 g/dL (3.5-5.0); CALCIUM 9.2 mg/dL (8.8-10.2); CREATININE 1.7 mg/dL (0.5-0.9); PHOSPHORUS 3.8 mg/dL (2.7-4.5); POTASSIUM 5.5 mmol/L (3.5-5.1)
[2019-04-25 07:36] LABS: HEMATOCRIT 32.7 % (37.0-47.0); IMM GRAN# 0.08 X1000 (0.0-0.04); IMM GRAN% 0.8 % (0.0-0.5); LYMPH# 0.47 X1000 (1.2-3.4); LYMPH% 4.6 % (20.5-51.1); MCH 28.7 PG (27-31); MCHC 30.6 g/dL (33-37); MCV 93.7 FL (81-99); MONO# 0.39 X1000 (0.11-0.59); MONO% 3.8 % (1.7-9.3); MPV 10.4 FL (7.4-10.4); NEUT# 9.32 X1000 (1.4-6.5); NEUT% 90.8 % (42.2-75.2); PLT 513 X1000 (130-400); RBC 3.49 XMIL (4.2-5.4); RDW 14.4 % (11.5-14.5); WBC 10.26 X1000 (4.8-10.8)
[2019-04-25 08:45] LABS: HEMOGLOBIN A1C 7.2 % (4.8-6.0)
--- NOTE | 2019-04-25 08:53 | PROGRESS NOTE ---
DATE: 04/25/2019 SUBJECTIVE: The patient reports feeling okay, breathing okay. Continues to be awake and alert. OBJECTIVE: Vital Signs: Temperature is 97.4, heart rate 56, respiratory rate 16, blood pressure 136/57, O2 saturation 96% on 2 L nasal cannula. General: This is an 89-year-old, female, lying in bed in no acute distress. Cardiovascular: S1, S2 heard. No murmurs, gallops, or rubs. Regular rate and rhythm. Respiratory: Decreased breath sounds, mostly noted on the left base. The patient is not using any accessory muscles or having work of breathing. Abdomen: Soft, obese, nontender to palpation. Bowel sounds present. No organomegaly. Extremities: Mild lower extremity edema noted in both legs. Peripheral pulses are present in both legs. Neurological: The patient is alert, a little bit slow in her speech, but I think it is her baseline. She follow commands. She is oriented in place and person. LABORATORY DATA: White cell count 10.26, hemoglobin 10.0, hematocrit 32.7, platelets 513,000. BMP reveals creatinine 1.7, with potassium 5.5, sodium 135. Blood sugar 222. ASSESSMENT AND PLAN: 1. Acute respiratory failure secondary to acute diastolic heart failure and left pleural effusion. Clinically, this patient is breathing better. Continues to require 2 liters of oxygen by nasal cannula. We tried to do a thoracenteses a couple days ago, but it was not possible to do it because there was not enough fluids to remove. At this point, will check an x-ray PA and lateral tomorrow, and will see if we still need to try to attempt that procedure or not. Considering left pleural effusion and stabilized renal function, will start Lasix 40 mg intravenously twice daily. 2. Community-acquired pneumonia. Will continue with Zyvox and Zosyn. White cell count is finally back to normal. Will continue to monitor this patient closely. 3. Sepsis secondary to Escherichia coli urinary tract infection. Will continue with Zosyn. 4. Acute kidney injury. Creatinine has stabilized to 1.7 during the last 3 days, so I think at this point, the patient is stable and she can start Lasix again. 5. Pericardial effusion. Will restart Lasix today. Will continue to monitor. cc: Shaan Stevenson MD
[2019-04-25] MEDS: ZYVOX 600 MG/D5W 600 MG/300 ML IVPB IV SCH ×2 (09:02→21:06)
[2019-04-25 09:23] LABS: BANDS 2 % (0-1); LYMPHS 8 % (21-51); MONO 4 % (1-9); SEGS 86 % (42-75)
[2019-04-25] MEDS: LANTUS INSULIN SUBQ SCH ×2 (10:05→21:06)
[2019-04-25] MEDS: PROTONIX PO SCH (11:04)
[2019-04-25] MEDS: LASIX IV SCH ×2 (11:06→21:05)
[2019-04-25] MEDS: LOVENOX SUBQ SCH (11:06)
[2019-04-25] MEDS: NORVASC PO SCH ×2 (11:06→21:05)
[2019-04-26] MEDS: SOLU-MEDROL IV SCH ×2 (02:25→14:17)
[2019-04-26] MEDS: LOPRESSOR PO SCH ×4 (02:25→14:19)
[2019-04-26] MEDS: ZOSYN 3.375 GM in NS 50 ML IV SCH ×5 (04:35→23:16)
[2019-04-26] MEDS: SODIUM CHLORIDE 0.9% INJ PRN (06:06)
[2019-04-26] MEDS: SYNTHROID IV SCH (06:06)
[2019-04-26] MEDS: HUMALOG SUBQ SCH ×4 (06:53→20:49)
[2019-04-26 08:23] LABS: HEMATOCRIT 34.5 % (37.0-47.0); HEMOGLOBIN 10.7 g/dL (12.0-16.0); IMM GRAN# 0.09 X1000 (0.0-0.04); LYMPH# 0.41 X1000 (1.2-3.4); LYMPH% 4.5 % (20.5-51.1); MCH 28.6 PG (27-31); MCV 92.2 FL (81-99); MONO# 0.47 X1000 (0.11-0.59); MONO% 5.1 % (1.7-9.3); MPV 10.2 FL (7.4-10.4); NEUT# 8.16 X1000 (1.4-6.5); NEUT% 89.4 % (42.2-75.2); PLT 524 X1000 (130-400); RBC 3.74 XMIL (4.2-5.4); RDW 14.5 % (11.5-14.5); WBC 9.13 X1000 (4.8-10.8)
[2019-04-26] MEDS: LANTUS INSULIN SUBQ SCH (08:42)
[2019-04-26] MEDS: LASIX IV SCH ×2 (08:43→20:34)
[2019-04-26] MEDS: NORVASC PO SCH (08:43)
[2019-04-26] MEDS: LOVENOX SUBQ SCH (08:43)
[2019-04-26] MEDS: PROTONIX PO SCH (08:43)
[2019-04-26 08:51] LABS: ANISOCYTOSIS 1+; LYMPHS 5 % (21-51); MONO 3 % (1-9); SEGS 92 % (42-75)
[2019-04-26] MEDS: ZYVOX 600 MG/D5W 600 MG/300 ML IVPB IV SCH ×2 (08:56→20:32)
[2019-04-26 09:16] LABS: ALBUMIN 3.1 g/dL (3.5-5.0); CALCIUM 9.4 mg/dL (8.8-10.2); CREATININE 1.7 mg/dL (0.5-0.9); PHOSPHORUS 3.8 mg/dL (2.7-4.5); POTASSIUM 4.2 mmol/L (3.5-5.1)
--- NOTE | 2019-04-26 09:25 | Diag Imaging Result Doc PS360 ---
EXAM: CHEST-2 VIEWS 04/26/2019 HISTORY: pulmonary edema TECHNIQUE: PA and lateral chest COMMENT: There is cardiomegaly. There is a large left pleural effusion. The right lung has not changed significantly in appearance since 04/22/2019. There is a greater degree of compressive atelectasis and volume of pleural fluid on the left compared to the previous study. IMPRESSION: Worsening left pleural effusion and atelectasis. Cardiomegaly plus minus pericardial effusion. Electronically signed by Alvarez Pritchard 04/26/2019 9:22 AM
--- NOTE | 2019-04-26 16:04 | PROGRESS NOTE ---
DATE: 04/26/2019 INTERVAL HISTORY: No acute events overnight. SUBJECTIVE: Ms Cameron is sitting in the chair without any distress. Her [id number] is currently at bedside. Ms. Cameron denies any chest pain, shortness of breath. She has been coughing. She denies any nausea, vomiting. Her appetite has been on lower side. We discussed about myxedema, abnormal thyroid function tests, pneumonia, urine infection, I answered all of their questions. Currently vitals temperature of 97.4 degrees, pulse 54, respiratory rate 14, blood pressure 116/48, she is saturating 98% 2 L nasal cannula. PHYSICAL EXAMINATION: Not in any acute distress. Oral cavity is moist. She has significantly decreased air entry, inspiratory crackles, decreased vocal resonance on left hemithorax as compared to right, the right hemithorax adequate air entry with bronchovesicular sounds, mild inspiratory crackles infrascapular region. S1, S2 normal bradycardic, no murmur or gallop.Abdomen: Obese, soft, nontender. She has bilateral lower extremity edema, dry skin and loss of eyelashes. I could also palpate her thyroid which was nontender. Reflexes I could not elicit biceps jerks. She is alert, she is answering questions appropriately though her responses and speech are slow. LABS: Suggestive of WBC of 9000, hemoglobin 10.7, platelet of 524,000, she does have 0% eosinophil count. She has potassium of 4.2, BUN 41, creatinine 1.7, glucose is 163. Urine culture growing E coli. Chest x-ray suggests worsening left pleural effusion, atelectasis. There was cardiomegaly +/- pericardial effusion. ASSESSMENT AND PLAN: 1. Myxedema. Patient did not have diagnosis of hypothyroidism in the past and on presentation TSH was 47. I will order a stat TSH, free T4 and will repeat tomorrow morning. Continue intravenous levothyroxine and adjust the dose based on TSH. She has not been on Liothyronine. I will consider adding it based on TSH. She has been on intravenous methylprednisolone and based on TSH I will consider changing to intravenous hydrocortisone, based on course I will consider getting ultrasound of the thyroid. Her constipation, bradycardia, hypothermia, dry skin, loss of eyelashes, slow speech and acute encephalopathy on admission could be due to myxedema. I will start her on bisacodyl suppositories and MiraLAX for constipation. 2. Acute hypoxic respiratory failure due to left lower lobe pneumonia as well as left pleural effusion, parapneumonic effusion with or without contribution from hypothyroidism is a possibility. I had a discussion about today's chest x-ray with the radiologist on the phone, previously attempted thoracentesis failed on April 23 as there was little pleural effusion. After discussion with radiologist the plan is to repeat chest x-ray again tomorrow morning and based on that consider another thoracenteses. Meanwhile I will keep her on intravenous Lasix with close input and output monitoring with Sellers catheter as well as kidney function. Continue intravenous Zosyn and intravenous Zyvox. 3. Sepsis due to left lower lobe pneumonia as well as Escherichia coli urinary tract infection. Continue current intravenous antibiotics. 4. Hypotension. This is a combination of use of multiple antihypertensive medication including metoprolol, amlodipine as well as Lasix. I will stop metoprolol, amlodipine and continue to monitor her blood pressure closely. 5. Acute kidney injury on chronic kidney disease stage 3 likely because of Lasix use. I will adjust the Lasix dose based on her response. 6. Pericardial effusion with mitral stenosis and moderate pulmonary hypertension. According to echocardiogram, it was small effusion without any tamponade physiology. Cardiology team has signed off though she had elevated troponin no further ischemic workup was recommended. Based on course she may need repeat echocardiogram. DISPOSITION: I will continue to monitor patient with telemetry unit. Plan is to get repeat chest x-ray tomorrow, based on that will decide about need for thoracentesis. Plan of care extensively discussed with patient as well as her [id number] at bedside. Their questions have been satisfactorily answered. cc: MD PABLO Crockett
[2019-04-26] MEDS: MIRALAX PO SCH ×2 (16:21→20:34)
[2019-04-26] MEDS: DULCOLAX PR SCH ×2 (16:21→20:50)
[2019-04-26 17:36] LABS: FREE T4 0.47 ng/dL (0.93-1.70); TSH 53.23 uIUmL (0.27-4.20)
[2019-04-26] MEDS ORDERED: SODIUM CHLORIDE 0.9% INJ ONE (19:25)
[2019-04-26] MEDS ORDERED: SYNTHROID IV ONE ×3 (19:25→19:45)
[2019-04-26] MEDS: CYTOMEL PO SCH (20:35)
[2019-04-26] MEDS: SOLU-CORTEF IV SCH (20:59)
[2019-04-27] MEDS: ZOSYN 3.375 GM in NS 50 ML IV SCH ×6 (03:40→23:45)
[2019-04-27] MEDS: SOLU-CORTEF IV SCH ×3 (03:40→19:33)
[2019-04-27 05:15] LABS: BASO# 0.01 X1000 (0.0-0.2); BASO% 0.1 % (0.0-0.8); HEMATOCRIT 34.3 % (37.0-47.0); HEMOGLOBIN 11.2 g/dL (12.0-16.0); IMM GRAN# 0.11 X1000 (0.0-0.04); IMM GRAN% 1.1 % (0.0-0.5); LYMPH# 0.47 X1000 (1.2-3.4); LYMPH% 4.7 % (20.5-51.1); MCH 29.6 PG (27-31); MCHC 32.7 g/dL (33-37); MCV 90.5 FL (81-99); MONO# 0.47 X1000 (0.11-0.59); MONO% 4.7 % (1.7-9.3); MPV 10.3 FL (7.4-10.4); NEUT# 8.88 X1000 (1.4-6.5); NEUT% 89.4 % (42.2-75.2); PLT 460 X1000 (130-400); RBC 3.79 XMIL (4.2-5.4); RDW 14.5 % (11.5-14.5); WBC 9.94 X1000 (4.8-10.8)
[2019-04-27 05:40] LABS: BANDS 4 % (0-1); LYMPHS 7 % (21-51); SEGS 89 % (42-75)
[2019-04-27 05:50] LABS: ALBUMIN 2.7 g/dL (3.5-5.0); CALCIUM 9.1 mg/dL (8.8-10.2); CREATININE 1.6 mg/dL (0.5-0.9); PHOSPHORUS 3.9 mg/dL (2.7-4.5); POTASSIUM 3.4 mmol/L (3.5-5.1)
[2019-04-27] MEDS ORDERED: LOVENOX SUBQ SCH (06:00)
[2019-04-27] MEDS: HUMALOG SUBQ SCH ×4 (06:03→19:45)
[2019-04-27] MEDS: SYNTHROID IV SCH (06:04)
--- NOTE | 2019-04-27 06:40 | Diag Imaging Result Doc PS360 ---
EXAM: CHEST-PORTABLE HISTORY: pleural effusion TECHNIQUE: Single view COMPARISON: 04/26/2019 FINDINGS: The heart is enlarged. There is a moderate sized left pleural effusion with infiltrates and atelectasis in the left lung. These are similar to the prior study. Right lung remains clear. IMPRESSION: No interval improvement Electronically signed by Farshad Ferrari 04/27/2019 6:38 AM
[2019-04-27 06:42] LABS: FREE T4 0.58 ng/dL (0.93-1.70); TSH 30.05 uIUmL (0.27-4.20)
[2019-04-27] MEDS ORDERED: KLOR-CON PO ONE ×2 (06:55→10:30)
[2019-04-27] MEDS: PROTONIX PO SCH (08:16)
[2019-04-27] MEDS: LASIX IV SCH ×3 (08:16→20:00)
[2019-04-27] MEDS: CYTOMEL PO SCH ×3 (08:16→17:10)
[2019-04-27] MEDS: LANTUS INSULIN SUBQ SCH (08:17)
[2019-04-27] MEDS: ZYVOX 600 MG/D5W 600 MG/300 ML IVPB IV SCH ×3 (08:17→20:00)
[2019-04-27] MEDS: DULCOLAX PR SCH ×2 (10:48→19:59)
[2019-04-27] MEDS: MIRALAX PO SCH ×2 (10:50→20:00)
[2019-04-27] MEDS: HUMULIN R SUBQ SCH (19:59)
--- NOTE | 2019-04-27 20:18 | PROGRESS NOTE ---
DATE: 04/27/2019 SUBJECTIVE: The patient is sitting up in a chair eating lunch. She has no complaints at this time. No acute events noted overnight. OBJECTIVE: Vital Signs: Temperature 96.8 degrees, blood pressure 136/60, heart rate 66 respirations 17, O2 saturation 97% on 2 L nasal cannula. Intake 846, output 1.8 L. General: This is a more this is an elderly female sitting up in a chair in no acute distress. Heart: S1, S2 normal. Bradycardic. Lungs: Equal air entry bilaterally. No wheezing. No rales. No rhonchi. Abdomen: Positive bowel sounds. Soft, nontender, nondistended. Extremities: 1+ edema in the lower extremities. Neurologic: The patient is alert and oriented x3. She is slow to answer questions. LABS: White blood cell count 9.9, hemoglobin 11, hematocrit 34, platelets 460,000. Sodium 135, potassium 3.4, chloride 92, CO2 29, BUN 40, creatinine 1.6, glucose 152. TSH 30, free T4 0.5, free T3 less than 1. IMAGING PROCEDURE: Chest x-ray reveals a moderate-sized left pleural effusion with infiltrates and atelectasis in the left lung. ASSESSMENT AND PLAN: 1. Myxedema coma. The patient is currently on IV Synthroid, Cytomel and Solu- Cortef. TSH is slowly improving. We will continue on this regimen for now. 2. Acute hypoxemic respiratory failure secondary to pneumonia and left pleural effusion. The chest x-ray is unchanged. We will continue with the current treatment regimen. 3. Urinary tract infection secondary to Escherichia coli. Continue with the current antibiotic regimen. 4. Left pleural effusion. There was not enough fluid to be drained. We will continue to monitor this closely. The patient is on diuretic therapy and she appears to be responding well. 5. Pneumonia. Continue on Zosyn and Zyvox. 6. Obesity. Aware. 7. Insulin-dependent diabetes mellitus. Continue with Lantus and sliding scale insulin. 8. Acute kidney injury on chronic kidney disease. Stable. The patient is currently receiving diuretic therapy. Continue to monitor closely. 9. Hypokalemia. We will replace the patient's potassium. 10. Constipation. Continue with the laxative regimen. 11. Deep venous thrombosis prophylaxis. Continue on Lovenox. 12. Disposition. If the patient continues to improve, we will likely move her to the medical floor tomorrow. cc: Roxann Del Castillo MD MTDD
[2019-04-28] MEDS: SOLU-CORTEF IV SCH ×3 (03:47→22:47)
[2019-04-28] MEDS: ZOSYN 3.375 GM in NS 50 ML IV SCH ×5 (03:47→22:47)
[2019-04-28 06:00] LABS: HEMATOCRIT 34.1 % (37.0-47.0); HEMOGLOBIN 11.1 g/dL (12.0-16.0); MCH 29.4 PG (27-31); MCHC 32.6 g/dL (33-37); MCV 90.5 FL (81-99); MPV 10.5 FL (7.4-10.4); RBC 3.77 XMIL (4.2-5.4); RDW 14.6 % (11.5-14.5); WBC 13.44 X1000 (4.8-10.8)
[2019-04-28] MEDS: LOVENOX SUBQ SCH (06:04)
[2019-04-28] MEDS: SYNTHROID IV SCH (06:04)
[2019-04-28] MEDS: HUMULIN R SUBQ SCH ×4 (06:04→22:50)
[2019-04-28 06:43] LABS: CALCIUM 9.3 mg/dL (8.8-10.2); CREATININE 1.7 mg/dL (0.5-0.9); POTASSIUM 3.1 mmol/L (3.5-5.1)
[2019-04-28] MEDS ORDERED: KLOR-CON PO ONE (07:29)
[2019-04-28] MEDS: CYTOMEL PO SCH ×3 (08:01→16:21)
[2019-04-28] MEDS: ZYVOX 600 MG/D5W 600 MG/300 ML IVPB IV SCH ×2 (08:02→23:17)
[2019-04-28] MEDS: LASIX IV SCH (08:02)
[2019-04-28] MEDS: PROTONIX PO SCH (08:02)
[2019-04-28] MEDS: LANTUS INSULIN SUBQ SCH (08:03)
[2019-04-28] MEDS: MIRALAX PO SCH ×2 (08:18→22:53)
[2019-04-28] MEDS: DULCOLAX PR SCH ×2 (08:18→22:52)
[2019-04-28 08:56] LABS: ALLEN TEST YES; BE 6.1 mmoll (-3.0-3.0); BLOOD TYPE ARTERIAL; HCO3-(ACT) 29.6 mmoll (20.0-26.0); METHB 1.6 % (0.0-1.5); O2(CT) 16.5 mL/dL (15.0-23.0); O2HB 94.3 % (95.0-99.0); PCO2(98.6) 46 mmHg (35-45); PO2(98.6) 78 mmHg (60-100); SAMPLE BLOOD; SAO2 97.8 % (95.0-100.0); THB 12.4 g/dL (11.5-17.4); pH(98.6) 7.44 (7.35-7.45)
[2019-04-28 09:00] LABS: MODALITY CANNULA
[2019-04-29] MEDS: SOLU-CORTEF IV SCH (03:25)
[2019-04-29] MEDS: ZOSYN 3.375 GM in NS 50 ML IV SCH ×3 (04:00→18:19)
--- NOTE | 2019-04-29 04:06 | PROGRESS NOTE ---
DATE: 04/28/2019 SUBJECTIVE: The patient is resting comfortably in bed. She has no complaints. No acute events noted overnight. OBJECTIVE: Vital Signs: Temperature 96.9 degrees, blood pressure 143/58, heart rate 66, respirations 12, O2 saturation 94% on 2 L nasal cannula. General: This is a morbidly obese female lying in bed, in no acute distress. Heart: S1, S2 normal. Regular rate and rhythm. Lungs: Clear to auscultation bilaterally. Diminished breath sounds at the bases. Abdomen: Positive bowel sounds. Soft, obese, nontender, nondistended. Extremities: 2+ edema bilaterally. Neurologic: The patient is alert and oriented x3. LABS: White blood cell count 13, hemoglobin 11, hematocrit 34, platelets 429,000. Sodium 132, potassium 3.1, chloride 88, CO2 29, BUN 43, creatinine 1.7, glucose 184. ASSESSMENT AND PLAN: 1. Myxedema coma. Continue on intravenous Synthroid, oral Cytomel, and Solu-Cortef. We will repeat TSH, free T4, and free T3 tomorrow. 2. Acute hypoxemic respiratory failure secondary to pneumonia and a left pleural effusion. We will order a chest x-ray to be done tomorrow. Continue on the current antibiotic regimen. 3. Leukocytosis. This is likely secondary to steroid therapy. The patient is afebrile. We will continue to monitor the white count closely. 4. Urinary tract infection, secondary to Escherichia coli. Continue with the current antibiotic regimen. 5. Left pleural effusion. Will assess this on the chest x-ray, again scheduled for tomorrow. 6. Volume overload. The patient has been transitioned to oral Lasix. 7. Acute kidney injury on chronic kidney disease. Stable. Continue to monitor the patient closely while receiving diuretic therapy. 8. Hypokalemia. We will replace the patient's potassium. 9. Constipation. Resolved. The patient is having regular bowel movements. 10. Deep vein thrombosis prophylaxis. Continue on Lovenox. 11. Disposition. The patient is stable for transfer to the medical floor. Physical Therapy has been consulted. cc: Roxann Del Castillo MD
[2019-04-29] MEDS: HUMULIN R SUBQ SCH ×4 (06:29→21:34)
[2019-04-29] MEDS: SYNTHROID IV SCH (06:44)
[2019-04-29] MEDS: LOVENOX SUBQ SCH (06:44)
[2019-04-29] MEDS: SODIUM CHLORIDE 0.9% INJ PRN (06:48)
--- NOTE | 2019-04-29 07:07 | Diag Imaging Result Doc PS360 ---
EXAM: CHEST-1 VIEW 04/29/2019 HISTORY: pleural effusion TECHNIQUE: AP portable at 0621 COMMENT: There is a large left pleural effusion. There is cardiomegaly and increased pulmonary vascularity. There is slightly increased interstitial markings the right base which was not the case on 04/27/2019. There is actually been some slight improvement in pneumatization of the left upper lobe since the previous study. IMPRESSION: Large left pleural effusion. Cardiomegaly. Mild pulmonary edema. Electronically signed by Alvarez Pritchard 04/29/2019 7:04 AM
[2019-04-29 08:59] LABS: HEMATOCRIT 34.2 % (37.0-47.0); HEMOGLOBIN 10.8 g/dL (12.0-16.0); IMM GRAN# 0.06 X1000 (0.0-0.04); IMM GRAN% 0.4 % (0.0-0.5); LYMPH# 0.32 X1000 (1.2-3.4); LYMPH% 2.3 % (20.5-51.1); MCH 28.2 PG (27-31); MCHC 31.6 g/dL (33-37); MCV 89.3 FL (81-99); MONO% 3.6 % (1.7-9.3); MPV 9.9 FL (7.4-10.4); NEUT# 13.09 X1000 (1.4-6.5); NEUT% 93.7 % (42.2-75.2); PLT 412 X1000 (130-400); RBC 3.83 XMIL (4.2-5.4); RDW 14.5 % (11.5-14.5); WBC 13.97 X1000 (4.8-10.8)
[2019-04-29 09:18] LABS: ALBUMIN 3.1 g/dL (3.5-5.0); CALCIUM 9.6 mg/dL (8.8-10.2); CREATININE 1.6 mg/dL (0.5-0.9); PHOSPHORUS 3.6 mg/dL (2.7-4.5); POTASSIUM 3.4 mmol/L (3.5-5.1)
[2019-04-29] MEDS: LASIX PO SCH (09:19)
[2019-04-29] MEDS: PROTONIX PO SCH (09:19)
[2019-04-29] MEDS: CYTOMEL PO SCH ×3 (09:20→18:19)
[2019-04-29] MEDS: DULCOLAX PR SCH ×2 (09:20→21:34)
[2019-04-29] MEDS: LANTUS INSULIN SUBQ SCH (09:20)
[2019-04-29] MEDS: MIRALAX PO SCH ×2 (09:20→21:35)
[2019-04-29] MEDS: ZYVOX 600 MG/D5W 600 MG/300 ML IVPB IV SCH ×2 (09:31→21:34)
[2019-04-29 10:48] LABS: LYMPHS 10 % (21-51); MONO 4 % (1-9); SEGS 86 % (42-75)
--- NOTE | 2019-04-29 19:58 | PULMONOLOGY CONSULTATION ---
DATE: 04/29/2019 REQUESTING PROVIDER: Dr. Roxann Del Castillo. REASON FOR CONSULTATION: Left pleural effusion. HISTORY OF PRESENT ILLNESS: This is an 89-year-old female, with a medical history of hypertension, chronic anemia, cervical spinal stenosis, and morbid obesity. She was initially admitted on 04/20/2019 with altered mental status, elevated proBNP, suspected UTI. CT thorax without contrast on 04/20/2019 showed large pericardial effusion, left lung pneumonia, small left pleural effusion, and minimal pulmonary edema in the lung bases. However, chest x-ray on 04/22/2019 showed increasing pleural effusion and atelectasis on the left, so ultrasound thoracentesis was scheduled on 04/23/2019, which turns out is undoable as ultrasound showed small left pleural effusion. Three days later, chest x-ray on 04/26/2019 showed worsening left pleural effusions with a large left pleural effusion identified this time. She has been on daily Lasix since admission. She is also on antibiotic including Zosyn and linezolid since 04/21/2019. Patient currently is sitting on the bedside chair having her lunch. She states she is feeling fine. She reports no shortness of breath, chest pain, palpitation, dyspnea. She does have occasional dry cough and chronic bilateral lower extremity edema. The patient's [id number] is at the bedside. PAST MEDICAL HISTORY: 1. Hypertension. 2. Chronic anemia. 3. Cervical spinal stenosis. 4. Morbid obesity. Current BMI 40.5. PAST SURGICAL HISTORY: Cataract surgery. SOCIAL HISTORY: The patient lives at home alone. She has a son who lives next door. She has no history of alcohol, tobacco, or illicit drug use. FAMILY HISTORY: Positive for coronary artery disease. ALLERGIES: No known drug allergies. REVIEW OF SYSTEMS: A 10-point review of systems was conducted and the pertinent is listed within the HPI, otherwise noncontributory. EXAMINATION: Vital Signs: Temperature 97.5 degrees, blood pressure 145/50, pulse 72, respiratory rate 16, oxygen saturation 95% on nasal cannula at 2 L. General: Very friendly, cooperative, morbidly obese, sitting in the bedside chair having lunch. No acute distress noted. HEENT: Atraumatic, normocephalic. Trachea midline. Mucosa pink and slightly dry. Pupils equal, round, reactive to light. Respiratory: Even and unlabored. Symmetrical excursion. Auscultation reveals diminished air entry on the left side lung with coarse inspiratory crackles, worse in the left middle lung zones. Cardiovascular: Regular rate and rhythm with S1 and S2 appreciated. Gastrointestinal: Soft, protuberant, nontender, nondistended. Normoactive bowel sounds in all 4 quadrants. Extremities: Bilateral lower extremity pitting edema 1 to 2+ with chronic stasis change. Cold to touch with diminished sensation. Neurologic: Alert and oriented x2. Confusion noted at times. Speech fluent. Answers simple questions. Follows simple commands. LAB DATA: White blood cells 14.97, hemoglobin 10.8, hematocrit 34.2, platelet 412,000. Sodium 129, potassium 3.4, chloride 85, carbon dioxide 31, BUN 45, creatinine 1.6, glucose 133, TSH 19.53. IMAGING DATA: Chest x-ray this morning showed stable chest with enlarged heart and moderate sized left pleural effusion, infiltrates, and atelectasis in the left lung, and right lung remains clear. ASSESSMENT: This is an 89-year-old female with a medical history of hypertension, chronic anemia, cervical spinal stenosis, and morbid obesity. She has been admitted since 04/20/2019 with altered mental status, troponin elevation, suspected urinary tract infection. 1. Acute hypoxemic respiratory failure secondary to pneumonia and left pleural effusion. 2. Left pleural effusion. Thoracentesis had been scheduled once on 04/23/2019, but undoable as the ultrasound showed the left pleural effusion was small; however, chest x- ray later continued showing worsening left pleural effusion in moderate to large size. 3. Pneumonia. 4. Acute kidney injury on chronic kidney disease. 5. Urinary tract infection secondary to Escherichia coli. PLAN: 1. Continue supplemental oxygen as needed. 2. Continue antibiotics, including linezolid and Zosyn. 3. Continue hydrocortisone. 4. Continue diuretics as tolerated. 5. Follow up CBC, BMP, and procalcitonin. 6. Repeat CT thorax without contrast to further evaluate the left pleural effusion. 7. Encourage patient to use incentive spirometer routinely with deep breathing and cough. 8. Further recommendations pending hospital course. Thank you for the courtesy of this consult. Dr. Bailey dictated examination, evaluation, management, and orders. KEVIN dictation for Dr. Bailey according to his direction. Dictated by KEVIN Cao for Lucio Bailey MD cc: KEVIN Cao MD [facility]
--- NOTE | 2019-04-29 20:14 | PROGRESS NOTE ---
DATE: 04/29/2019 SUBJECTIVE: The patient is resting comfortably in bed. She has no complaints. No acute events noted overnight. OBJECTIVE: Vital Signs: Temperature 97.6, blood pressure 169/55, heart rate 73, respirations 16, O2 saturation 97% on 2 L nasal cannula. Intake 900, output 1.4 L. General: This is a [id number] elderly female lying in bed in no acute distress. Heart: S1, S2 normal. Regular rate and rhythm. Lungs: Equal air entry bilaterally. No wheezing. No rales. No rhonchi. Abdomen: Positive bowel sounds. Soft, nontender, nondistended. Extremities: There is 2+ edema bilaterally. Neurologic: The patient is alert and oriented x3. LABS: White blood cell count 13, hemoglobin 10, hematocrit 34, platelets 412. Sodium 129, potassium 3.4, chloride 85, CO2 of 31, BUN 45, creatinine 1.6, glucose 133. Albumin 3.1. TSH 19.5. Chest x-ray shows a large left pleural effusion. Mild pulmonary edema. 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 Continue on Cytomel. We will wean the steroids. Continue to monitor the thyroid function closely. 2. Acute hypoxemic respiratory failure secondary to pneumonia and a left pleural effusion. The chest x-ray shows that the pleural effusion is larger. We will consult with Pulmonary with for further recommendations. 3. Urinary tract infection secondary to Escherichia coli. Continue with antibiotic therapy. 4. Large left pleural effusion. The patient is scheduled to undergo a CT scan today. 5. Volume overload. Continue on diuretic therapy. 6. Acute kidney injury on chronic kidney disease. Stable. The patient is receiving diuretic therapy. We will continue to monitor this closely. 7. Deep vein thrombosis prophylaxis. Continue on Lovenox. 8. Disposition: Continue with physical therapy. cc: Roxann Del Castillo MD
[2019-04-30] MEDS: ZOSYN 3.375 GM in NS 50 ML IV SCH ×6 (00:19→23:20)
[2019-04-30] MEDS: HUMULIN R SUBQ SCH ×4 (06:21→21:39)
[2019-04-30] MEDS: LOVENOX SUBQ SCH (06:21)
[2019-04-30] MEDS: SYNTHROID PO SCH (06:22)
--- NOTE | 2019-04-30 07:10 | Diag Imaging Result Doc PS360 ---
EXAM: CT THORAX W/O CONTRAST 04/29/2019 HISTORY: SOB TECHNIQUE: This exam was performed using automated exposure control, adjustment of mA or kV according to patient size, and/or use of iterative reconstruction technique. COMMENT: The current study is compared with 04/20/2019. There is a fairly large left pleural effusion which may be partially loculated. There is a pericardial effusion, which appears slightly smaller than on the previous study. The pleural effusion was also present previously and appears slightly larger. There is extensive coronary calcification. There is calcification in the mitral valve annulus and left ventricular wall posteriorly. This was also the case previously. The regional skeleton is stable in appearance. There is some subcutaneous edema over the flanks particularly on the left side. This is slightly worse than on the previous study. There is some groundglass opacity in the right upper lobe and platelike opacities in the right lower lobe with consolidation in the posterior costophrenic sulcus. There is compressive atelectasis or pneumonia on the left primarily in the lower lobe. Compared to the previous examination the left lower lobe was previously opacified. While the left upper lobe is not as well-expanded as on the previous study there is less groundglass opacity in the apical region. The groundglass opacities in the right upper lobe were not previously present however. Atelectatic changes in the right lower lobe are slightly worse. IMPRESSION: 1. Large left pleural effusion, slightly worse. 2. Improved pneumonia or pulmonary edema in the left upper lobe, slightly worse on the right. 3. Stable atelectasis versus pneumonia in the left lower lobe, slightly worsened atelectasis in the left lower lobe. 4. Slightly improved pericardial effusion. 5. Slightly worsened anasarca. Electronically signed by Alvarez Pritchard 04/30/2019 7:08 AM
[2019-04-30 08:04] LABS: CALCIUM 9.2 mg/dL (8.8-10.2); CREATININE 1.4 mg/dL (0.5-0.9); POTASSIUM 2.8 mmol/L (3.5-5.1)
[2019-04-30 08:47] LABS: HEMATOCRIT 31.7 % (37.0-47.0); HEMOGLOBIN 10.2 g/dL (12.0-16.0); LYMPH# 0.42 X1000 (1.2-3.4); LYMPH% 3.4 % (20.5-51.1); MCH 28.7 PG (27-31); MCHC 32.2 g/dL (33-37); MONO# 0.45 X1000 (0.11-0.59); MONO% 3.6 % (1.7-9.3); MPV 10.2 FL (7.4-10.4); PLT 337 X1000 (130-400); RBC 3.56 XMIL (4.2-5.4); RDW 14.6 % (11.5-14.5); WBC 12.39 X1000 (4.8-10.8)
[2019-04-30 09:43] LABS: BANDS 2 % (0-1); LYMPHS 8 % (21-51); MONO 4 % (1-9); SEGS 86 % (42-75)
[2019-04-30] MEDS: ZYVOX 600 MG/D5W 600 MG/300 ML IVPB IV SCH ×2 (09:50→21:35)
[2019-04-30] MEDS: MIRALAX PO SCH ×2 (09:51→21:39)
[2019-04-30] MEDS: CYTOMEL PO SCH ×3 (09:52→16:29)
[2019-04-30] MEDS: DULCOLAX PR SCH ×2 (09:52→21:39)
[2019-04-30] MEDS: LASIX PO SCH (09:52)
[2019-04-30] MEDS: PROTONIX PO SCH (09:52)
[2019-04-30] MEDS: CORTEF PO SCH (09:52)
[2019-04-30] MEDS: LANTUS INSULIN SUBQ SCH (09:53)
[2019-04-30] MEDS ORDERED: KLOR-CON PO ONE (10:51)
[2019-04-30] MEDS ORDERED: ALBUMIN 25% IV ONE (13:21)
[2019-04-30] MEDS: LASIX IV SCH (21:26)
--- NOTE | 2019-04-30 23:36 | PROVIDER PROGRESS NOTE ---
Progress Note Dr. Bailey Progress Note/Pulmonary and or critical care Subjective: The patient is sitting in the bedside chair. She is on NC 2L and tolerates well. She denies any SOB, chest pain or chest tightness. She still has occasional dry cough. Patients [id number] at the bedside. Objective: Vital Signs: T 97.0, BP 155/46, NC 73, RR 22, and SaO2 100% on NC 2L. Physical Examination: General: Morbidly obese. Sitting at the edge of the bed with no acute distress noted. HEENT: Normocephalic. Trachea midline. Mucosa pink and moist. PERRL. Chest: Even and unlabored. No increased work of breathing. Symmetrical excursion. Diminished breathing sounds bilaterally with left side worse than right side. Inspiratory crackles bilaterally worse in the left middle lung zones. CVS: Regular rate and rhythm with S1 and S2 appreciated. Abdomen: Normoactive bowel sounds present. Soft. Nontender. Protuberant. Extremities: BLE pitting edema 1-2+ with compression hose on. No cyanosis. No clubbing. Neuro: A/O x3. Speech fluent. Follow commands. Labs and Radiology: Laboratory Results 04/27/19 04/30/19 04/30/19 10:20 05:20 07:15 WBC RBC Hgb Hct MCV MCH MCHC RDW Std Deviation Plt Count MPV Neut % (Auto) Lymph % (Auto) [place] % (Auto) Eos % (Auto) Baso % (Auto) Neut # (Auto) Lymph # (Auto) [place] # (Auto) Eos # (Auto) Baso # (Auto) Segmented Neutrophils Band Neutrophils Lymphocytes Monocytes Sodium 134 L Potassium 2.8 L D Chloride 91 L Carbon Dioxide 30 Anion Gap 13 BUN 42 H Creatinine 1.4 H Estimated GFR/1.73 m2 35 BUN/Creatinine Ratio 30 Glucose 71 POC Glucose 92 D Calculated Osmolality 277 Calcium 9.2 Procalcitonin SEE COMMENTS 04/30/19 04/30/19 07:15 10:38 WBC 12.39 H RBC 3.56 L Hgb 10.2 L Hct 31.7 L MCV 89.0 MCH 28.7 MCHC 32.2 L RDW Std Deviation 14.6 H Plt Count 337 MPV 10.2 Neut % (Auto) Not Reportable Lymph % (Auto) 3.4 L [place] % (Auto) 3.6 Eos % (Auto) Not Reportable Baso % (Auto) 0.0 Neut # (Auto) Not Reportable Lymph # (Auto) 0.42 L [place] # (Auto) 0.45 Eos # (Auto) Not Reportable Baso # (Auto) 0.00 Segmented Neutrophils 86 H Band Neutrophils 2 H Lymphocytes 8 L Monocytes 4 Sodium Potassium Chloride Carbon Dioxide Anion Gap BUN Creatinine Estimated GFR/1.73 m2 BUN/Creatinine Ratio Glucose POC Glucose 123 H Calculated Osmolality Calcium Procalcitonin Assessment: Acute on chronic hypoxemic respiratory failure secondary to pneumonia and left pleural effusion. Stable. Left pleural effusion. Repeat CT thorax w/o contrast on 04/28/29 shows slightly worse large left pleural effusion, improved left upper lobe pneumonia or pulmonary edema, slightly worse right pneumonia or pulmonary edema, stable left lower lobe atelectasis vs. pneumonia, slightly worsened left lower lobe atelectasis, slightly improved pericardial effusion, and slightly worsened anasarca. Pneumonia. Acute kidney injury on chronic kidney disease. Improved some this morning. UTI secondary to E. Coli. Plan: Continue supplemental oxygen as needed. Continue antibiotics including Linezolid and Zosyn. Continue hydrocortisone for myxedema. Increasing diuretics ordered. I discussed the CT scan results with patient and her [id number]. They refused thoracentesis at this time, but preferred more aggressive diuretics. They say they are waiting for a family meeting next Friday. I also discussed with them that if patient's respiratory status starts declining over the weekend, thoracentesis will be recommended to be done as early as possible. Patient and family agree with it and all questions answered. Follow up renal profile and CBC tomorrow.
[2019-05-01] MEDS: LOVENOX SUBQ SCH (05:37)
[2019-05-01] MEDS: ZOSYN 3.375 GM in NS 50 ML IV SCH ×4 (05:37→22:08)
[2019-05-01] MEDS: HUMULIN R SUBQ SCH ×4 (06:07→20:08)
[2019-05-01] MEDS: SYNTHROID PO SCH (06:07)
[2019-05-01] MEDS ORDERED: ALBUMIN 25% IV ONE (08:00)
[2019-05-01 08:01] LABS: EOS# 0.38 X1000 (0.0-0.7); EOS% 4.2 % (0.0-10.0); HEMATOCRIT 26.4 % (37.0-47.0); HEMOGLOBIN 8.4 g/dL (12.0-16.0); LYMPH# 0.22 X1000 (1.2-3.4); LYMPH% 2.4 % (20.5-51.1); MCH 28.9 PG (27-31); MCHC 31.8 g/dL (33-37); MCV 90.7 FL (81-99); MONO# 0.42 X1000 (0.11-0.59); MONO% 4.6 % (1.7-9.3); MPV 9.9 FL (7.4-10.4); NEUT# 8.08 X1000 (1.4-6.5); NEUT% 88.8 % (42.2-75.2); PLT 215 X1000 (130-400); RBC 2.91 XMIL (4.2-5.4); RDW 14.9 % (11.5-14.5)
[2019-05-01 08:44] LABS: ALBUMIN 3.1 g/dL (3.5-5.0); CALCIUM 9.1 mg/dL (8.8-10.2); CREATININE 1.3 mg/dL (0.5-0.9); PHOSPHORUS 2.7 mg/dL (2.7-4.5)
[2019-05-01] MEDS ORDERED: KLOR-CON PO ONE (09:01)
[2019-05-01 09:09] LABS: ANISOCYTOSIS 1+; EOS 4 % (1-10); LYMPHS 4 % (21-51); MICROCYTOSIS 1+; MONO 2 % (1-9); POIKILOCYTOSIS 1+; SEGS 90 % (42-75); TARGET CELLS 1+
[2019-05-01] MEDS: CORTEF PO SCH (10:20)
[2019-05-01] MEDS: MIRALAX PO SCH ×2 (10:20→20:02)
[2019-05-01] MEDS: CYTOMEL PO SCH ×3 (10:20→17:13)
[2019-05-01] MEDS: LASIX IV SCH ×2 (10:20→19:57)
[2019-05-01] MEDS: LANTUS INSULIN SUBQ SCH (10:20)
[2019-05-01] MEDS: PROTONIX PO SCH (10:20)
[2019-05-01] MEDS: DULCOLAX PR SCH ×2 (10:20→20:08)
[2019-05-01] MEDS: ZYVOX 600 MG/D5W 600 MG/300 ML IVPB IV SCH ×2 (10:32→20:02)
--- NOTE | 2019-05-01 14:16 | PROGRESS NOTE ---
DATE: 05/01/2019 SUBJECTIVE: The patient is resting comfortably in bed. She has no complaints. No acute events noted overnight. OBJECTIVE: Vital Signs: Temperature is 97.5 degrees, blood pressure 136/37, heart rate 77, respirations 14, O2 saturation 98% on 2 L nasal cannula. Intake 100, output 3.1 L. General: This is a chronically ill-appearing elderly female lying in bed in no acute distress. Heart: S1, S2 normal. Regular rate and rhythm. Lungs: Equal air entry bilaterally. Diminished breath sounds at the bases. Abdomen: Positive bowel sounds. Soft, nontender, nondistended. Extremities: 3+ edema bilaterally. Neurologic: The patient is alert and oriented x3. LABS: White blood cell count 9, hemoglobin 8.4, hematocrit 26, platelets 215,000. Sodium 134, potassium 3, chloride 89, CO2 33, BUN 34, creatinine 1.3, glucose 57. ASSESSMENT AND PLAN: 1. Myxedema coma. Continue on Synthroid, Cytomel and a steroid taper. 2. Acute hypoxemic respiratory failure secondary to pneumonia and left pleural effusion. Continue with diuretic therapy and antibiotics. We will repeat a chest x-ray on Friday. 3. Urinary tract infection secondary to Escherichia coli. Continue on the current antibiotic regimen. 4. Volume overload. Slowly improving. Continue with diuretic therapy. 5. Acute kidney injury on chronic kidney disease. Slowly improving. 6. Deep venous thrombosis prophylaxis. Continue on Lovenox. cc: Roxann Del Castillo MD
--- NOTE | 2019-05-01 18:06 | PROVIDER PROGRESS NOTE ---
Progress Note Dr. Bailey Progress Note/Pulmonary and or critical care Subjective: The patient is sitting in the bedside chair. She stays on NC 2L. She reports dry cough once in a while, but nonsignificant. She complains of new-onset mild sore throat. Objective: Vital Signs: T 97.5, BP 136/37, MI 77, RR 14, and SaO2 98% on NC 2L. Physical Examination: General: Morbidly obese. Sitting at the edge of the bed. Very pleasant and cooperative. HEENT: Normocephalic. Trachea midline. Mucosa pink and slightly dry. PERRL. Brown hairy tongue noted. Chest: Even and unlabored. No increased work of breathing. Symmetrical excursion. Diminished breathing sounds bilaterally with left side worse than right side. Coarse inspiratory crackles bilaterally worse in the left middle lung zones. CVS: Regular rate and rhythm with S1 and S2 appreciated. Abdomen: Normoactive bowel sounds present. Soft. Nontender. Protuberant. Extremities: BLE pitting edema 1-2+ with compression hose on. No cyanosis. No clubbing. Neuro: A/O x3. Speech fluent. Follow commands. Labs and Radiology: Laboratory Results 05/01/19 05/01/19 05/01/19 05:29 07:34 07:34 WBC 9.10 RBC 2.91 L Hgb 8.4 L D Hct 26.4 L MCV 90.7 MCH 28.9 MCHC 31.8 L RDW Std Deviation 14.9 H Plt Count 215 D MPV 9.9 Immature Gran % (Auto) 0.0 Neut % (Auto) 88.8 H Lymph % (Auto) 2.4 L [place] % (Auto) 4.6 Eos % (Auto) 4.2 Baso % (Auto) 0.0 Immature Gran # (Auto) 0.00 Neut # (Auto) 8.08 H Lymph # (Auto) 0.22 L [place] # (Auto) 0.42 Eos # (Auto) 0.38 Baso # (Auto) 0.00 Segmented Neutrophils 90 H Lymphocytes 4 L Monocytes 2 Eosinophils 4 Poikilocytosis 1+ Anisocytosis 1+ Microcytosis 1+ Target Cells 1+ Sodium 134 L Potassium 3.0 L Chloride 89 L Carbon Dioxide 33 Anion Gap 12 BUN 34 H Creatinine 1.3 H Estimated GFR/1.73 m2 39 BUN/Creatinine Ratio 26 Glucose 57 L POC Glucose 80 Calculated Osmolality 274 Calcium 9.1 Phosphorus 2.7 Magnesium Albumin 3.1 L 05/01/19 05/01/19 05/01/19 07:34 11:00 16:01 WBC RBC Hgb Hct MCV MCH MCHC RDW Std Deviation Plt Count MPV Immature Gran % (Auto) Neut % (Auto) Lymph % (Auto) [place] % (Auto) Eos % (Auto) Baso % (Auto) Immature Gran # (Auto) Neut # (Auto) Lymph # (Auto) [place] # (Auto) Eos # (Auto) Baso # (Auto) Segmented Neutrophils Lymphocytes Monocytes Eosinophils Poikilocytosis Anisocytosis Microcytosis Target Cells Sodium Potassium Chloride Carbon Dioxide Anion Gap BUN Creatinine Estimated GFR/1.73 m2 BUN/Creatinine Ratio Glucose POC Glucose 111 H 93 Calculated Osmolality Calcium Phosphorus Magnesium 2.4 Albumin Assessment: Acute on chronic hypoxemic respiratory failure secondary to pneumonia and left pleural effusion. Improved. Left pleural effusion. Repeat CT thorax w/o contrast on 04/28/29 shows slightly worse large left pleural effusion, improved left upper lobe pneumonia or pulmonary edema, slightly worse right pneumonia or pulmonary edema, stable left lower lobe atelectasis vs. pneumonia, slightly worsened left lower lobe atelectasis, slightly improved pericardial effusion, and slightly worsened anasarca. Pneumonia. Acute kidney injury on chronic kidney disease. Improved some this morning. UTI secondary to E. Coli. Plan: Weaning oxygen as tolerated. Continue antibiotics including Linezolid and Zosyn. Continue hydrocortisone for myxedema. Continue more aggressive diuresis as tolerated. Follow up renal profile and CBC tomorrow.
[2019-05-01] MEDS: MYCOSTATIN POWDER TOP SCH (20:04)
[2019-05-02] MEDS: ZOSYN 3.375 GM in NS 50 ML IV SCH ×4 (05:59→23:12)
[2019-05-02] MEDS: POTASSIUM CHLORIDE 20% LIQUID PO SCH ×2 (05:59→08:58)
[2019-05-02] MEDS: LOVENOX SUBQ SCH (06:01)
[2019-05-02] MEDS: HUMULIN R SUBQ SCH ×4 (06:01→21:23)
[2019-05-02] MEDS: SYNTHROID PO SCH (06:01)
[2019-05-02 08:15] LABS: EOS# 0.42 X1000 (0.0-0.7); EOS% 4.1 % (0.0-10.0); HEMATOCRIT 28.4 % (37.0-47.0); HEMOGLOBIN 8.8 g/dL (12.0-16.0); IMM GRAN# 0.02 X1000 (0.0-0.04); IMM GRAN% 0.2 % (0.0-0.5); LYMPH# 0.18 X1000 (1.2-3.4); LYMPH% 1.8 % (20.5-51.1); MCH 28.4 PG (27-31); MCV 91.6 FL (81-99); MONO# 0.34 X1000 (0.11-0.59); MONO% 3.3 % (1.7-9.3); MPV 10.1 FL (7.4-10.4); NEUT# 9.25 X1000 (1.4-6.5); NEUT% 90.6 % (42.2-75.2); PLT 176 X1000 (130-400); RDW 14.9 % (11.5-14.5); WBC 10.21 X1000 (4.8-10.8)
[2019-05-02 08:41] LABS: ALBUMIN 3.7 g/dL (3.5-5.0); CALCIUM 9.5 mg/dL (8.8-10.2); CREATININE 1.3 mg/dL (0.5-0.9); PHOSPHORUS 2.3 mg/dL (2.7-4.5); POTASSIUM 3.9 mmol/L (3.5-5.1)
[2019-05-02] MEDS ORDERED: SODIUM PHOSPHATE 40 MMOL in NS 250 ML IV ONE (08:43)
[2019-05-02 08:58] LABS: EOS 3 % (1-10); LYMPHS 3 % (21-51); MONO 4 % (1-9); SEGS 90 % (42-75)
[2019-05-02] MEDS: MIRALAX PO SCH ×2 (08:58→21:08)
[2019-05-02] MEDS: CORTEF PO SCH (08:58)
[2019-05-02] MEDS: DULCOLAX PR SCH ×2 (08:58→21:23)
[2019-05-02] MEDS: LASIX IV SCH ×2 (08:58→21:08)
[2019-05-02] MEDS: CYTOMEL PO SCH ×3 (08:58→17:15)
[2019-05-02] MEDS: PROTONIX PO SCH (08:58)
[2019-05-02] MEDS: ZYVOX 600 MG/D5W 600 MG/300 ML IVPB IV SCH ×2 (08:58→21:08)
[2019-05-02 08:59] LABS: ANISOCYTOSIS 1+
[2019-05-02] MEDS: MYCOSTATIN POWDER TOP SCH ×2 (08:59→21:23)
[2019-05-02] MEDS: LANTUS INSULIN SUBQ SCH (08:59)
[2019-05-02 09:00] LABS: HYPOCHROM 1+
[2019-05-02] MEDS ORDERED: ALBUMIN 25% IV ONE (09:30)
--- NOTE | 2019-05-02 19:36 | PROGRESS NOTE ---
DATE: 05/02/2019 SUBJECTIVE: The patient is resting comfortably in bed. She states that she feels much better. The swelling in her legs has decreased. OBJECTIVE: Vital Signs: Temperature 97.5 degrees, blood pressure 151/57, heart rate 79, respirations 19, O2 saturations 92% on 1 L nasal cannula, intake 1.6 L, output 3.5 L. General: This is a morbidly obese female sitting up in bed in no acute distress. Heart: S1, S2 normal. Regular rate and rhythm. Lungs: Poor air entry in the left lung field. Diminished breath sounds. Abdomen: Positive bowel sounds. Soft, obese, nontender, nondistended. Extremities: 1+ edema bilaterally. Neuro: The patient is alert and oriented x3. LABS: White blood cell count 10, hemoglobin 8.8, hematocrit 28, platelets 176,000. Sodium 136, potassium 4.3, chloride 89, CO2 35, BUN 28, creatinine 1.3, glucose 72, phosphorus 2.3. ASSESSMENT AND PLAN: 1. Myxedema coma. Continue on Synthroid, Cytomel and hydrocortisone. 2. Acute hypoxemic respiratory failure. Multifactorial. The patient has a large left pleural effusion and pneumonia. 3. Large left pleural effusion. Will repeat a chest x-ray tomorrow. 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 4. Pneumonia. Continue with antibiotic therapy. 5. Urinary tract infection secondary to Escherichia coli. Will check a urinalysis . 6. Morbid obesity. Aware. 7. Volume overload. Improved. The patient is diuresing well on the current diuretic regimen. 8. Acute kidney injury on chronic kidney disease slowly improving. Continue to monitor closely while on diuretic therapy. 9. Hypophosphatemia. Will replace the patient's phosphorus. 10. Diabetes mellitus type 2. Stable. Continue on Lantus and sliding scale insulin. 11. Constipation. Improved, continue with scheduled laxative therapy. 12. Deep vein thrombosis prophylaxis. Continue on Lovenox. 13. Disposition. Continue with physical therapy. cc: Roxann Del Castillo MD
--- NOTE | 2019-05-02 19:37 | PROVIDER PROGRESS NOTE ---
Progress Note Dr. Bailey Progress Note/Pulmonary and or critical care Subjective: The patient is sitting in bed on NC 1L. She appears slightly pale today. She states she feels sick, but cant tell me exactly whats wrong. She barely ate her lunch. She has no pain, nausea, or diarrhea. Patients [id number] at the bedside. Objective: Vital Signs: T 97.6, BP 118/41, WI 84, RR 18, and SaO2 95% on NC 1L. Physical Examination: General: Morbidly obese. Sitting at the edge of the bed. Very pleasant and cooperative. HEENT: Normocephalic. Trachea midline. Mucosa pink and slightly dry. PERRL. Brown hairy tongue noted. Chest: Even and unlabored. No increased work of breathing. Symmetrical excursion. Diminished breathing sounds bilaterally with left side worse than right side. Coarse inspiratory crackles bilaterally worse in the left middle lung zones. CVS: Regular rate and rhythm with S1 and S2 appreciated. Abdomen: Normoactive bowel sounds present. Soft. Nontender. Protuberant. Extremities: BLE pitting edema 1-2+ with compression hose on. No cyanosis. No cl ubbing. Neuro: A/O x3. Speech fluent. Follow commands. Labs and Radiology: Laboratory Results 04/30/19 05/01/19 05/01/19 20:08 05:29 19:34 WBC RBC Hgb Hct MCV MCH MCHC RDW Std Deviation Plt Count MPV Immature Gran % (Auto) Neut % (Auto) Lymph % (Auto) [place] % (Auto) Eos % (Auto) Baso % (Auto) Immature Gran # (Auto) Neut # (Auto) Lymph # (Auto) [place] # (Auto) Eos # (Auto) Baso # (Auto) Segmented Neutrophils Lymphocytes Monocytes Eosinophils Hypochromia Basophilic Stippling Anisocytosis Macrocytosis Sodium Potassium Chloride Carbon Dioxide Anion Gap BUN Creatinine Estimated GFR/1.73 m2 BUN/Creatinine Ratio Glucose POC Glucose 180 H 80 D 87 Calculated Osmolality Calcium Phosphorus Albumin 05/02/19 05/02/19 05/02/19 07:35 07:35 10:48 WBC 10.21 RBC 3.10 L Hgb 8.8 L Hct 28.4 L MCV 91.6 MCH 28.4 MCHC 31.0 L RDW Std Deviation 14.9 H Plt Count 176 MPV 10.1 Immature Gran % (Auto) 0.2 Neut % (Auto) 90.6 H Lymph % (Auto) 1.8 L [place] % (Auto) 3.3 Eos % (Auto) 4.1 Baso % (Auto) 0.0 Immature Gran # (Auto) 0.02 Neut # (Auto) 9.25 H Lymph # (Auto) 0.18 L [place] # (Auto) 0.34 Eos # (Auto) 0.42 Baso # (Auto) 0.00 Segmented Neutrophils 90 H Lymphocytes 3 L Monocytes 4 Eosinophils 3 Hypochromia 1+ Basophilic Stippling 1+ Anisocytosis 1+ Macrocytosis 1+ Sodium 136 Potassium 3.9 D Chloride 89 L Carbon Dioxide 35 Anion Gap 12 BUN 28 H Creatinine 1.3 H Estimated GFR/1.73 m2 39 BUN/Creatinine Ratio 22 Glucose 72 POC Glucose 100 Calculated Osmolality 276 Calcium 9.5 Phosphorus 2.3 L Albumin 3.7 05/02/19 05/02/19 12:45 15:37 WBC RBC Hgb Hct MCV MCH MCHC RDW Std Deviation Plt Count MPV Immature Gran % (Auto) Neut % (Auto) Lymph % (Auto) [place] % (Auto) Eos % (Auto) Baso % (Auto) Immature Gran # (Auto) Neut # (Auto) Lymph # (Auto) [place] # (Auto) Eos # (Auto) Baso # (Auto) Segmented Neutrophils Lymphocytes Monocytes Eosinophils Hypochromia Basophilic Stippling Anisocytosis Macrocytosis Sodium Potassium 4.3 Chloride Carbon Dioxide Anion Gap BUN Creatinine Estimated GFR/1.73 m2 BUN/Creatinine Ratio Glucose POC Glucose 106 H Calculated Osmolality Calcium Phosphorus Albumin Assessment: Acute on chronic hypoxemic respiratory failure secondary to pneumonia and left pleural effusion. Improved. Left pleural effusion. Repeat CT thorax w/o contrast on 04/28/29 shows slightly worse large left pleural effusion, improved left upper lobe pneumonia or pulmonary edema, slightly worse right pneumonia or pulmonary edema, stable left lower lobe atelectasis vs. pneumonia, slightly worsened left lower lobe atelectasis, slightly improved pericardial effusion, and slightly worsened anasarca. Pneumonia. Acute kidney injury on chronic kidney disease. Stable this morning. UTI secondary to E. Coli. Plan: Weaning oxygen as tolerated. Continue antibiotics including Linezolid and Zosyn. Continue hydrocortisone for myxedema per Dr. [place]. Continue more aggressive diuresis as tolerated. Follow up renal profile and CXR tomorrow. I discuss patients condition and care plan with patients [id number]. All questions have been answered.
--- NOTE | 2019-05-03 04:14 | PROGRESS NOTE ---
DATE: 04/30/2019 SUBJECTIVE: The patient is sitting in a chair. She has no complaints at this time. No acute events noted overnight. OBJECTIVE: Vital Signs: Temperature 97.2 degrees, blood pressure 150/55, heart rate 76, respirations 18, O2 saturation 98% on 2 L nasal cannula. General: This is a morbidly obese female, sitting in a chair in no acute distress. Heart: S1, S2 normal. Regular rate and rhythm. Lungs: Equal air entry bilaterally. Diminished breath sounds in the left lung field. Abdomen: Positive bowel sounds. Soft, obese, nontender, nondistended. Extremities: 2 to 3+ edema. Neurologic: The patient is alert and oriented x3. LABS: White blood cell count 12, hemoglobin 10, hematocrit 31, platelets 337,000. Sodium 134, potassium 2.8, chloride 91, CO2 30, BUN 42, creatinine 1.4, glucose 123. ASSESSMENT AND PLAN: 1. Acute hypoxemic respiratory failure secondary to pneumonia and a large left pleural effusion. 2. Large left pleural effusion. We will continue to monitor closely. It appears to be unchanged on the CT done today. We will await further recommendations from the cash on delivery clerk. 3. Pneumonia. Continue on antibiotic therapy. 4. Myxedema coma. Improved. We will check a TSH and free T3. Continue on Synthroid and Cytomel. Will wean the steroids. 5. Volume overload. Continue with diuretic therapy. We will also give some albumin since the patient has a low albumin. 6. Acute kidney injury. Improved. 7. Morbid obesity. Aware. 8. Diabetes mellitus type 2. Continue on Lantus and sliding scale insulin. 9. Deep vein thrombosis prophylaxis. Continue on Lovenox. cc: Roxann Del Castillo MD [facility]
[2019-05-03] MEDS: ZOSYN 3.375 GM in NS 50 ML IV SCH ×4 (05:08→22:55)
[2019-05-03] MEDS: LOVENOX SUBQ SCH (05:09)
[2019-05-03] MEDS: HUMULIN R SUBQ SCH ×4 (05:59→21:20)
[2019-05-03] MEDS: SYNTHROID PO SCH (06:00)
[2019-05-03 07:37] LABS: HEMATOCRIT 27.4 % (37.0-47.0); HEMOGLOBIN 8.5 g/dL (12.0-16.0); MCH 28.5 PG (27-31); MCV 91.9 FL (81-99); MPV 10.2 FL (7.4-10.4); RBC 2.98 XMIL (4.2-5.4); WBC 9.01 X1000 (4.8-10.8)
--- NOTE | 2019-05-03 07:55 | Diag Imaging Result Doc PS360 ---
EXAM: CHEST-2 VIEWS HISTORY: pleural effusion TECHNIQUE: Two views COMPARISON: 04/29/2019 FINDINGS: There is a moderate sized left pleural effusion with lower lobe atelectasis and pneumonia. There are smaller infiltrates in the lower right lung. Cardiomegaly remains. Trace right effusion. Increased AP diameter to the chest. IMPRESSION: Interval worsening Electronically signed by Farshad Ferrari 05/03/2019 7:53 AM
[2019-05-03 08:02] LABS: ALBUMIN 3.4 g/dL (3.5-5.0); CALCIUM 9.4 mg/dL (8.8-10.2); CREATININE 1.3 mg/dL (0.5-0.9); POTASSIUM 3.8 mmol/L (3.5-5.1)
[2019-05-03] MEDS: ZYVOX 600 MG/D5W 600 MG/300 ML IVPB IV SCH ×2 (09:24→21:18)
[2019-05-03] MEDS: LASIX IV SCH ×2 (09:25→21:21)
[2019-05-03] MEDS: CORTEF PO SCH (09:25)
[2019-05-03] MEDS: MIRALAX PO SCH ×2 (09:25→21:21)
[2019-05-03] MEDS: PROTONIX PO SCH (09:25)
[2019-05-03] MEDS: CYTOMEL PO SCH ×3 (09:25→21:21)
[2019-05-03] MEDS: LANTUS INSULIN SUBQ SCH (09:28)
[2019-05-03] MEDS: DULCOLAX PR SCH ×3 (09:29→21:20)
[2019-05-03] MEDS: MYCOSTATIN POWDER TOP SCH ×2 (09:45→21:19)
--- NOTE | 2019-05-03 15:15 | PROGRESS NOTE ---
DATE: 05/03/2019 SUBJECTIVE: The patient is sitting up in a chair. She has no complaints at this time. No acute events noted overnight. OBJECTIVE: Vital Signs: Temperature 97.9 degrees, blood pressure 149/51, heart rate 88, respirations 16, O2 saturation is 97% on 1 L nasal cannula. Intake 400, output 3.5 L. General: This is a chronically ill-appearing, elderly female, sitting in a chair in no acute distress. Heart: S1, S2 normal. Lungs: Equal air entry bilaterally. No wheezing. No rales. Abdomen: Positive bowel sounds. Soft, obese, nontender, nondistended. Extremities: There is 1+ edema in the legs. Neurologic: The patient is alert and oriented x3. IMAGING AND LABORATORY DATA: White blood cell count 9, hemoglobin 8.5, hematocrit 27, platelets 135,000. Sodium 134, potassium 3.8, chloride 88, CO2 of 35, BUN 25, creatinine 1.3, glucose 145. TSH 18.9, free T4 of 0.92. Chest x-ray reveals a moderate-sized left pleural effusion with atelectasis and pneumonia. ASSESSMENT AND PLAN: 1. Acute hypoxemic respiratory failure secondary to pneumonia and large left pleural effusion. 2. Large left pleural effusion. Discussed with the call center rn. Will continue with diuretic therapy, and monitor closely for improvement. 3. Pneumonia. Continue with antibiotics, bronchodilator therapy, and supplemental oxygen. The patient has been provided with incentive spirometer. 4. Myxedema coma. Slowly improving. Continue with thyroid replacement. 5. Volume overload. Improved. Continue with diuretic therapy. The patient received albumin several days last week. 6. Acute kidney injury. Stable. Continue to monitor closely while on diuretic therapy. 7. Diabetes mellitus type 2. Continue on Lantus and sliding scale insulin. 8. Morbid obesity. Aware. 9. Deep vein thrombosis prophylaxis. Continue on Lovenox. 10. Disposition. Continue with physical therapy. cc: Roxann Del Castillo MD
--- NOTE | 2019-05-03 17:35 | PROVIDER PROGRESS NOTE ---
Progress Note Dr. Bailey Progress Note/Pulmonary and or critical care Subjective: The patient is sitting in the bedside chair on NC 1L. She appears tired. She just had physical therapy. She apparently is still very weak per physical therapy. She has SOB with any activity. Patients [id number] at the bedside. Objective: Vital Signs: T 98.2, BP 158/60, AR 98, RR 16, and SaO2 95% on NC 1L. Physical Examination: General: Morbidly obese. Sitting at the edge of the bed. Very pleasant and cooperative. HEENT: Normocephalic. Trachea midline. Mucosa pink and slightly dry. PERRL. Brown hairy tongue noted. Chest: Even and unlabored. No increased work of breathing. Symmetrical excursion. RLL mild crackles with good air entry in the right lung. GUILLERMO clear with good air entry. LML and LLL significantly diminished air entry with coarse crackles. CVS: Regular rate and rhythm with S1 and S2 appreciated. Abdomen: Normoactive bowel sounds present. Soft. Nontender. Protuberant. Extremities: BLE pitting edema 1+ with compression hose on. No cyanosis. No clubbing. Neuro: A/O x3. Speech fluent. Follow commands. Labs and Radiology: Laboratory Results 05/02/19 05/03/19 05/03/19 19:38 05:40 07:10 WBC RBC Hgb Hct MCV MCH MCHC RDW Std Deviation Plt Count MPV Sodium Potassium Chloride Carbon Dioxide Anion Gap BUN Creatinine Estimated GFR/1.73 m2 BUN/Creatinine Ratio Glucose POC Glucose 140 H 73 Calculated Osmolality Calcium Phosphorus Albumin TSH 18.99 H Free T4 05/03/19 05/03/19 05/03/19 07:10 07:10 07:10 WBC 9.01 RBC 2.98 L Hgb 8.5 L Hct 27.4 L MCV 91.9 MCH 28.5 MCHC 31.0 L RDW Std Deviation 15.0 H Plt Count 135 MPV 10.2 Sodium 134 L Potassium 3.8 Chloride 88 L Carbon Dioxide 35 Anion Gap 11 BUN 25 H Creatinine 1.3 H Estimated GFR/1.73 m2 39 BUN/Creatinine Ratio 19 Glucose 86 POC Glucose Calculated Osmolality 272 Calcium 9.4 Phosphorus 3.0 Albumin 3.4 L TSH Free T4 0.92 L 03/09/20 03/09/20 10:12 15:55 WBC RBC Hgb Hct MCV MCH MCHC RDW Std Deviation Plt Count MPV Sodium Potassium Chloride Carbon Dioxide Anion Gap BUN Creatinine Estimated GFR/1.73 m2 BUN/Creatinine Ratio Glucose POC Glucose 145 H D 183 H Calculated Osmolality Calcium Phosphorus Albumin TSH Free T4 Assessment: Acute on chronic hypoxemic respiratory failure secondary to pneumonia and left pleural effusion. Improved. Left pleural effusion. Repeat CT thorax w/o contrast on 04/28/29 shows slightly worse large left pleural effusion, improved left upper lobe pneumonia or pulmonary edema, slightly worse right pneumonia or pulmonary edema, stable left lower lobe atelectasis vs. pneumonia, slightly worsened left lower lobe atelecta sis, slightly improved pericardial effusion, and slightly worsened anasarca. CXR today shows interval worsening with a moderate sized left pleural effusion, lower lobe atelectasis, pneumonia, lower right lung small infiltrates, and trace right effusion. Pneumonia. Acute kidney injury on chronic kidney disease. Stable this morning. UTI secondary to E. Coli. Plan: Weaning oxygen as tolerated. Continue antibiotics including Linezolid and Zosyn. On Day 13 today. Continue hydrocortisone and thyroid replacement for myxedema per Dr. Soria. We will suggest to continue current course with diuretic. We will follow up radiographic imaging later. Follow up renal profile tomorrow. We discuss patients condition and care plan with patients [id number]. All questions have been answered.
[2019-05-04] MEDS: ZOSYN 3.375 GM in NS 50 ML IV SCH ×3 (05:14→17:45)
[2019-05-04] MEDS: CYTOMEL PO SCH ×3 (06:09→22:00)
[2019-05-04] MEDS: HUMULIN R SUBQ SCH ×4 (06:09→20:31)
[2019-05-04] MEDS: LOVENOX SUBQ SCH (06:09)
[2019-05-04] MEDS: SYNTHROID PO SCH (06:11)
[2019-05-04 07:40] LABS: HEMATOCRIT 25.3 % (37.0-47.0); HEMOGLOBIN 7.8 g/dL (12.0-16.0); MCH 28.6 PG (27-31); MCHC 30.8 g/dL (33-37); MCV 92.7 FL (81-99); MPV 10.8 FL (7.4-10.4); RBC 2.73 XMIL (4.2-5.4); RDW 15.2 % (11.5-14.5); WBC 6.6 X1000 (4.8-10.8)
[2019-05-04 08:18] LABS: ALBUMIN 2.9 g/dL (3.5-5.0); CALCIUM 9.3 mg/dL (8.8-10.2); CREATININE 1.2 mg/dL (0.5-0.9); PHOSPHORUS 2.6 mg/dL (2.7-4.5); POTASSIUM 3.5 mmol/L (3.5-5.1)
[2019-05-04] MEDS: CORTEF PO SCH (09:19)
[2019-05-04] MEDS: LASIX IV SCH ×2 (09:19→20:30)
[2019-05-04] MEDS: ZYVOX 600 MG/D5W 600 MG/300 ML IVPB IV SCH (09:19)
[2019-05-04] MEDS: PROTONIX PO SCH (09:19)
[2019-05-04] MEDS: LANTUS INSULIN SUBQ SCH (09:19)
[2019-05-04] MEDS: MIRALAX PO SCH ×2 (09:19→20:31)
[2019-05-04] MEDS: MYCOSTATIN POWDER TOP SCH ×2 (17:43→20:31)
[2019-05-04] MEDS: DULCOLAX PR SCH ×2 (17:44→20:31)
[2019-05-04] MEDS: MYCOSTATIN SUSP PO SCH ×3 (17:44→20:30)
--- NOTE | 2019-05-04 18:43 | PROVIDER PROGRESS NOTE ---
Progress Note Dr. Bailey Progress Note/Pulmonary and or critical care Subjective: The patient is on physical therapy at this time. For the first time, she starts ambulation. She is able to walk close to 10 steps. She does have mild SOB. She is complaining of poor appetite secondary to lose of taste. Objective: Vital Signs: T 97.8, BP 151/50, NV 88, RR 19, and SaO2 98% on NC 1L. Physical Examination: General: Morbidly obese. Sitting at the edge of the bed. Very pleasant and cooperative. HEENT: Normocephalic. Trachea midline. Mucosa pink and slightly dry. PERRL. Brown patchy noted in the whole oral cavity which appears like thrush. Chest: Even and unlabored. No increased work of breathing. Symmetrical excursion. RLL mild crackles with good air entry in the right lung. GUILLERMO clear with good air entry. LML and LLL significantly diminished air entry with coarse crackles. CVS: Regular rate and rhythm with S1 and S2 appreciated. Abdomen: Normoactive bowel sounds present. Soft. Nontender. Protuberant. Extremities: BLE pitting edema 1+ with compression hose on. No cyanosis. No clubbing. Neuro: A/O x3. Speech fluent. Follow commands. Labs and Radiology: Laboratory Results 05/03/19 05/04/19 05/04/19 20:04 05:55 07:12 WBC RBC Hgb Hct MCV MCH MCHC RDW Std Deviation Plt Count MPV Sodium 135 L Potassium 3.5 Chloride 89 L Carbon Dioxide 34 Anion Gap 12 BUN 23 H Creatinine 1.2 H Estimated GFR/1.73 m2 42 BUN/Creatinine Ratio 19 Glucose 91 POC Glucose 137 H 58 L D Calculated Osmolality 273 Calcium 9.3 Phosphorus 2.6 L Albumin 2.9 L 05/04/19 07:12 WBC 6.60 RBC 2.73 L Hgb 7.8 L Hct 25.3 L MCV 92.7 MCH 28.6 MCHC 30.8 L RDW Std Deviation 15.2 H Plt Count 77 L D MPV 10.8 H Sodium Potassium Chloride Carbon Dioxide Anion Gap BUN Creatinine Estimated GFR/1.73 m2 BUN/Creatinine Ratio Glucose POC Glucose Calculated Osmolality Calcium Phosphorus Albumin Assessment: Acute on chronic hypoxemic respiratory failure secondary to pneumonia and left pleural effusion. Improved. Left pleural effusion. Repeat CT thorax w/o contrast on 04/28/29 shows slightly worse large left pleural effusion, improved left upper lobe pneumonia or pulmonary edema, slightly worse right pneumonia or pulmonary edema, stable left lower lobe atelectasis vs. pneumonia, slightly worsened left lower lobe atelectasis, slightly improved pericardial effusion, and slightly worsened anasarca. Pneumonia. Acute kidney injury on chronic kidney disease. Mild improvement this morning. UTI secondary to E. Coli. Plan: Weaning oxygen as tolerated. Continue antibiotics including Linezolid and Zosyn. On Day 14 today. Continue hydrocortisone and thyroid replacement for myxedema per Dr. Soria. We will suggest to continue current course with diuretic. We will follow up radiographic imaging later. We add Nystatin for thrush.
--- NOTE | 2019-05-04 19:09 | PROGRESS NOTE ---
DATE: 05/04/2019 INTERVAL HISTORY: No acute events overnight. She did have a hypoglycemic episode in the morning time after which her blood sugar has not been checked, so I asked the nurse to check blood sugars immediately. She also had thrombocytopenia for which I have stopped her low- molecular heparin. SUBJECTIVE: I saw Ms. Cameron in the later part of the day and she was sitting in the chair. Two of her sons are at bedside. Ms. Cameron does not appear in any acute distress. VITALS: Ms. Cameron has temperature of 97.9 degrees, pulse 82, respiratory rate 19, blood pressure of 138/73. She is saturating 100% on 1 L nasal cannula. REVIEW OF SYSTEMS: Negative for chest pain. Negative for shortness of breath. Negative for nausea, vomiting, or abdominal pain. Negative for cough. PHYSICAL EXAMINATION: HEENT: She has oral thrush. Pulmonary: She has significant decreased air entry on left hemithorax. Inspiratory crackles on right infrascapular region. Cardiovascular: S1, S2 normal. No murmur or gallop. Abdomen: Obese, soft, nontender. She has bilateral lower extremity edema. Neurologic: She is alert and oriented x3. She has a urine catheter. LABORATORY DATA: Suggestive of hemoglobin of 7.8, platelets of 77,000. She also has a BUN of 23, creatinine 1.2, blood glucose of 58. Her phosphorus was 2.6. Microbiology: No new data. No new imaging. ASSESSMENT AND PLAN: 1. Acute hypoxic respiratory failure due to bilateral lower lobe pneumonia and large left-sided pleural effusion. Continue supplemental oxygen, intravenous Zosyn and linezolid. Today is day 13 of antibiotics. I will stop intravenous linezolid considering her anemia and thrombocytopenia. Continue intravenous Lasix. I will appreciate pulmonology team's recommendation about further management of persistent pleural effusion. Follow-up chest x-ray tomorrow. 2. Myxedema coma, slowly improving. The patient appears much more awake, alert, and faster to respond on today's examination. I will continue current dose of levothyroxine, liothyronine and oral hydrocortisone and follow-up repeat TSH and free T4 in next 72 hours. 3. Insulin-dependent diabetes mellitus type 2 with hypoglycemia. I will decrease her insulin glargine dose. I ordered stat blood glucose check. In the future, I will consider decreasing hydrocortisone dose. 4. She has history of morbid obesity, chronic kidney disease stage 3, which are currently stable. 5. Anemia and thrombocytopenia. Heparin-induced thrombocytopenia is a possibility considering her platelet count started dropping. Linezolid could also be a contributing factor causing bone marrow suppression. I will stop both enoxaparin and linezolid follow up with CBC as well as heparin-induced platelet factor 4 antibody. DISPOSITION: Continue monitor patient on medical floor. Plan of care was extensively discussed with the patient's 2 sons at bedside. All of their questions have been satisfactorily answered. I will keep the patient's [id number] informed after my discussion with anesthesiologist attending tomorrow. Continue physical therapy. cc: Roland Multani MD [facility]
[2019-05-05] MEDS: ZOSYN 3.375 GM in NS 50 ML IV SCH ×5 (00:49→23:30)
[2019-05-05] MEDS: CYTOMEL PO SCH ×3 (05:26→23:30)
[2019-05-05] MEDS: HUMULIN R SUBQ SCH ×4 (06:30→20:44)
[2019-05-05] MEDS: SYNTHROID PO SCH (06:31)
--- NOTE | 2019-05-05 07:16 | Diag Imaging Result Doc PS360 ---
EXAM: CHEST-1 VIEW HISTORY: SOB TECHNIQUE: Single view COMPARISON: 05/03/2019 FINDINGS: There is a moderate to large left pleural effusion. This may be slightly smaller than on the prior exam. There is left-sided atelectasis and infiltrates. The vasculature is distended. Heart is likely enlarged. IMPRESSION: Stable to slight improvement Electronically signed by Farshad Ferrari 05/05/2019 7:14 AM
[2019-05-05 08:19] LABS: BASO# 0.03 X1000 (0.0-0.2); BASO% 0.5 % (0.0-0.8); EOS# 0.33 X1000 (0.0-0.7); EOS% 5.7 % (0.0-10.0); HEMATOCRIT 27.4 % (37.0-47.0); HEMOGLOBIN 8.4 g/dL (12.0-16.0); LYMPH# 0.26 X1000 (1.2-3.4); LYMPH% 4.5 % (20.5-51.1); MCH 29.1 PG (27-31); MCHC 30.7 g/dL (33-37); MCV 94.8 FL (81-99); MONO# 0.49 X1000 (0.11-0.59); MONO% 8.5 % (1.7-9.3); MPV 11.8 FL (7.4-10.4); NEUT# 4.63 X1000 (1.4-6.5); NEUT% 80.8 % (42.2-75.2); PLT 58 X1000 (130-400); RBC 2.89 XMIL (4.2-5.4); RDW 15.2 % (11.5-14.5); WBC 5.74 X1000 (4.8-10.8)
[2019-05-05] MEDS ORDERED: LANTUS INSULIN SUBQ SCH (09:00)
[2019-05-05] MEDS: MYCOSTATIN SUSP PO SCH ×4 (09:58→20:44)
[2019-05-05] MEDS: LASIX IV SCH ×2 (09:58→20:55)
[2019-05-05] MEDS: CORTEF PO SCH (09:58)
[2019-05-05] MEDS: PROTONIX PO SCH (09:58)
[2019-05-05] MEDS: MYCOSTATIN POWDER TOP SCH ×2 (09:58→23:30)
[2019-05-05] MEDS: MIRALAX PO SCH ×2 (09:58→20:44)
[2019-05-05] MEDS: DULCOLAX PR SCH ×2 (09:58→20:45)
--- NOTE | 2019-05-05 18:45 | PROVIDER PROGRESS NOTE ---
Progress Note Dr. Bailey Progress Note/Pulmonary and or critical care Subjective: The patient is lying in bed with no acute distress noted. She still complains of taste loss and poor appetite. She reports occasional dry cough and generalized weakness, which have been improving slowly. Objective: Vital Signs: T 96.0, BP 121/60, WI 75, RR 18, and SaO2 99% on NC 2L. Physical Examination: General: Morbidly obese. Lying in bed. No acute distress. Very pleasant and cooperative. HEENT: Normocephalic. Trachea midline. Mucosa pink and slightly dry. PERRL. Oropharynx clear. Chest: Even and unlabored. No increased work of breathing. Symmetrical excursion. RLL mild crackles with good air entry in the right lung. GUILLERMO clear with good air entry. LML and LLL significantly diminished air entry with coarse crackles. CVS: Regular rate and rhythm with S1 and S2 appreciated. Abdomen: Normoactive bowel sounds present. Soft. Nontender. Protuberant. Extremities: BLE pitting edema 1+ with compression hose on. No cyanosis. No clubbing. Neuro: A/O x3. Speech fluent. Follow commands. Labs and Radiology: Laboratory Results 05/04/19 05/05/19 05/05/19 19:43 05:16 05:55 WBC RBC Hgb Hct MCV MCH MCHC RDW Std Deviation Plt Count MPV Neut % (Auto) Lymph % (Auto) [place] % (Auto) Eos % (Auto) Baso % (Auto) Neut # (Auto) Lymph # (Auto) [place] # (Auto) Eos # (Auto) Baso # (Auto) POC Glucose 117 H D 71 55 L 05/05/19 05/05/19 05/05/19 06:40 07:40 11:09 WBC 5.74 RBC 2.89 L Hgb 8.4 L Hct 27.4 L MCV 94.8 MCH 29.1 MCHC 30.7 L RDW Std Deviation 15.2 H Plt Count 58 L MPV 11.8 H Neut % (Auto) 80.8 H Lymph % (Auto) 4.5 L [place] % (Auto) 8.5 Eos % (Auto) 5.7 Baso % (Auto) 0.5 Neut # (Auto) 4.63 Lymph # (Auto) 0.26 L [place] # (Auto) 0.49 Eos # (Auto) 0.33 Baso # (Auto) 0.03 POC Glucose 78 92 05/05/19 16:30 WBC RBC Hgb Hct MCV MCH MCHC RDW Std Deviation Plt Count MPV Neut % (Auto) Lymph % (Auto) [place] % (Auto) Eos % (Auto) Baso % (Auto) Neut # (Auto) Lymph # (Auto) [place] # (Auto) Eos # (Auto) Baso # (Auto) POC Glucose 101 Assessment: Acute on chronic hypoxemic respiratory failure secondary to pneumonia and left pleural effusion. Improved. Left pleural effusion. Repeat CT thorax w/o contrast on 04/28/29 shows slightly worse large left pleural effusion, improved left upper lobe pneumonia or pulmonary edema, slightly worse right pneumonia or pulmonary edema, stable left lower lobe atelectasis vs. pneumonia, slightly worsened left lower lobe atelectasis, slightly improved pericardial effusion, and slightly worsened anasarca. CXR today shows stable to slight improvement with slightly smaller moderate to large left pleural effusion, left sided atelectasis and infiltrates, distended vasculature and cardiomegaly. Pneumonia. Acute kidney injury on chronic kidney disease. Improving. UTI secondary to E. Coli. Plan: Weaning oxygen as tolerated. Continue antibiotic Zosyn. On Day 14 today. Linezolid discontinued per Dr. Multani secondary to anemia. Continue hydrocortisone and thyroid replacement for myxedema. We will suggest to continue current course with diuretic, antibiotic and thyroid placement. We will follow up radiographic imaging. Continue Nystatin for thrush. We start incentive spirometer. We encourage patient to use it routinely with deep breathing and coughing.
--- NOTE | 2019-05-05 19:43 | PROGRESS NOTE ---
DATE: 05/05/2019 INTERVAL HISTORY: No acute events overnight. SUBJECTIVE: I saw Ms. Cameron sitting in the bed. She denies any chest pain, shortness of breath or cough. She denies any nausea, vomiting or abdominal pain. She states she had a bowel movement probably the day before yesterday. She still has a urine catheter. She states that she would not want to pee on herself if she is to receive intravenous Lasix, and after discussing the risk associated with a urine catheter we decided to keep the catheter in. OBJECTIVE: Vital signs: Temperature 98.1 degrees, pulse 82, respiratory rate 18, blood pressure 140/40. She is saturating 99% on 2 L nasal cannula. On physical examination not in any acute distress. Oral cavity is moist. She has oral thrush. She has adequate air entry in bilateral supramammary region. Decreased air entry with inspiratory crackles on right infrascapular region, and significantly reduced air entry on most of the left hemithorax on back examination. S1, S2 normal. No murmur or gallop. Abdomen is obese, soft, nontender. She continues to have bilateral lower extremity and bilateral upper extremity edema. She has a urine catheter. She is alert and oriented x3. LABORATORY DATA: Labs suggestive of hemoglobin of 8.4, platelets of 58,000. No BMP today. No new microbiological data. DIAGNOSTIC DATA: Chest x-ray suggests continued left-sided pleural effusion. ASSESSMENT AND PLAN: 1. Acute hypoxic respiratory failure due to bilateral lower lobe pneumonia and large left-sided likely uncomplicated stage I parapneumonic effusion. Continue supplemental oxygen, intravenous Zosyn and intravenous Lasix. Today is day 14 of antibiotic. After discussion with Pulmonology, I will consider giving her a break from antibiotics. She may be progressing towards stage II of parapneumonic pleural effusion. 2. Myxedema coma, improved. Continue current dose of levothyroxine, liothyronine and oral hydrocortisone. Based on repeat TSH, I will stop liothyronine and hydrocortisone. 3. Insulin-dependent diabetes mellitus type 2 with hypoglycemia. I stopped long-acting insulin, will continue sliding scale insulin. 4. Others: She has history of morbid obesity and chronic kidney disease stage 3, which are currently stable. 5. Anemia and thrombocytopenia. She denies any hematemesis or melena. Her hemoglobin has been stable. Her HIT score suggests she is intermediate to high possibility for heparin-induced thrombocytopenia. I will follow up repeat CBC. Her linezolid has been stopped. I will give mechanical pneumatic compression devices for deep venous thrombosis prophylaxis. 6. Disposition: Continue to monitor the patient inside the hospital. Continue physical therapy. I will call the patient's daughter in-law and inform her about the plan of care. cc: Roland Multani MD
[2019-05-06] MEDS: ZOSYN 3.375 GM in NS 50 ML IV SCH ×3 (04:55→17:40)
[2019-05-06] MEDS: CYTOMEL PO SCH ×3 (05:48→23:13)
[2019-05-06] MEDS: SYNTHROID PO SCH (06:39)
[2019-05-06] MEDS: HUMULIN R SUBQ SCH ×4 (06:39→23:12)
[2019-05-06 08:18] LABS: BASO# 0.01 X1000 (0.0-0.2); BASO% 0.2 % (0.0-0.8); EOS# 0.36 X1000 (0.0-0.7); EOS% 8.7 % (0.0-10.0); HEMATOCRIT 23.8 % (37.0-47.0); HEMOGLOBIN 7.4 g/dL (12.0-16.0); LYMPH# 0.18 X1000 (1.2-3.4); LYMPH% 4.4 % (20.5-51.1); MCH 29.4 PG (27-31); MCHC 31.1 g/dL (33-37); MCV 94.4 FL (81-99); MONO# 0.34 X1000 (0.11-0.59); MONO% 8.2 % (1.7-9.3); MPV 12.1 FL (7.4-10.4); NEUT# 3.24 X1000 (1.4-6.5); NEUT% 78.5 % (42.2-75.2); PLT 55 X1000 (130-400); RBC 2.52 XMIL (4.2-5.4); RDW 15.2 % (11.5-14.5); WBC 4.13 X1000 (4.8-10.8)
[2019-05-06 08:24] LABS: ALBUMIN 2.8 g/dL (3.5-5.0); CALCIUM 9.3 mg/dL (8.8-10.2); CREATININE 1.2 mg/dL (0.5-0.9); DIRECT BILIRUBIN 0.2 mg/dL (0.00-0.20); POTASSIUM 3.8 mmol/L (3.5-5.1); TOTAL BILIRUBIN 0.64 mg/dL (0.20-1.00); TOTAL PROTEIN 5.7 g/dL (6.3-8.3)
[2019-05-06] MEDS: CORTEF PO SCH (10:29)
[2019-05-06] MEDS: MYCOSTATIN POWDER TOP SCH ×2 (10:30→23:13)
[2019-05-06] MEDS: MYCOSTATIN SUSP PO SCH ×4 (10:30→23:11)
[2019-05-06] MEDS: PROTONIX PO SCH (10:30)
[2019-05-06] MEDS: MIRALAX PO SCH ×2 (10:30→23:13)
[2019-05-06] MEDS: LASIX IV SCH ×2 (10:31→23:11)
[2019-05-06] MEDS: DULCOLAX PR SCH ×2 (10:31→23:11)
[2019-05-06] MEDS ORDERED: ZOSYN ONE (14:39)
--- NOTE | 2019-05-06 17:33 | PROVIDER PROGRESS NOTE ---
Progress Note Dr. Bailey Progress Note/Pulmonary and or critical care Subjective: The patient is lying in bed with no acute distress noted. She still complains of taste loss and generalized weakness. She dd not have physical therapy yesterday as she kept pending it. Patients [id number] at the bedside. Objective: Vital Signs: T 97.9, BP 126/49, HI 86, RR 19, and SaO2 99% on NC 2L. Physical Examination: General: Morbidly obese. Lying in bed. No acute distress. Very pleasant and cooperative. HEENT: Normocephalic. Trachea midline. Mucosa pink and slightly dry. PERRL. Oropharynx clear. Chest: Even and unlabored. No increased work of breathing. Symmetrical excu rsion. RLL mild crackles with good air entry in the right lung. GUILLERMO clear with good air entry. LML and LLL significantly diminished air entry with coarse crackles. CVS: Regular rate and rhythm with S1 and S2 appreciated. Abdomen: Normoactive bowel sounds present. Soft. Nontender. Protuberant. Extremities: BLE pitting edema 1+ with compression hose on. No cyanosis. No clubbing. Neuro: A/O x3. Speech fluent. Follow commands. Labs and Radiology: Laboratory Results 05/05/19 05/06/19 05/06/19 20:17 05:43 07:45 WBC RBC Hgb Hct MCV MCH MCHC RDW Std Deviation Plt Count MPV Neut % (Auto) Lymph % (Auto) [place] % (Auto) Eos % (Auto) Baso % (Auto) Neut # (Auto) Lymph # (Auto) [place] # (Auto) Eos # (Auto) Baso # (Auto) Sodium 134 L Potassium 3.8 Chloride 87 L Carbon Dioxide 36 H Anion Gap 11 BUN 27 H Creatinine 1.2 H Estimated GFR/1.73 m2 42 BUN/Creatinine Ratio 23 Glucose 94 POC Glucose 105 H 96 Calculated Osmolality 273 Calcium 9.3 Total Bilirubin 0.64 Direct Bilirubin 0.20 AST 11 ALT 11 Alkaline Phosphatase 53 Total Protein 5.7 L Albumin 2.8 L Globulin 2.9 Albumin/Globulin Ratio 1.0 05/06/19 07:45 WBC 4.13 L RBC 2.52 L Hgb 7.4 L Hct 23.8 L MCV 94.4 MCH 29.4 MCHC 31.1 L RDW Std Deviation 15.2 H Plt Count 55 L MPV 12.1 H Neut % (Auto) 78.5 H Lymph % (Auto) 4.4 L [place] % (Auto) 8.2 Eos % (Auto) 8.7 Baso % (Auto) 0.2 Neut # (Auto) 3.24 Lymph # (Auto) 0.18 L [place] # (Auto) 0.34 Eos # (Auto) 0.36 Baso # (Auto) 0.01 Sodium Potassium Chloride Carbon Dioxide Anion Gap BUN Creatinine Estimated GFR/1.73 m2 BUN/Creatinine Ratio Glucose POC Glucose Calculated Osmolality Calcium Total Bilirubin Direct Bilirubin AST ALT Alkaline Phosphatase Total Protein Albumin Globulin Albumin/Globulin Ratio Assessment: Acute on chronic hypoxemic respiratory failure secondary to pneumonia and left pleural effusion. Improved. Left pleural effusion. Repeat CT thorax w/o contrast on 04/28/29 shows slightly worse large left pleural effusion, improved left upper lobe pneumonia or pulmonary edema, slightly worse right pneumonia or pulmonary edema, stable left lower lobe atelectasis vs. pneumonia, slightly worsened left lower lobe atelectasis, slightly improved pericardial effusion, and slightly worsened anasarca. Pneumonia. Acute kidney injury on chronic kidney disease. Improving. UTI secondary to E. Coli. Severe normocytic anemia. Hgb 7.4 this morning. Plan: Weaning oxygen as tolerated. Continue antibiotic Zosyn. On Day 14 today. Continue hydrocortisone and thyroid replacement for myxedema. We will suggest to continue current course with diuretic, antibiotic and thyroid placement. We will follow up radiographic imaging. Continue Nystatin for thrush. We encourage patient to use incentive spirometer routinely with deep breathing and coughing.
[2019-05-06 19:24] LABS: IRON SATURATION 79 %; TIBC 148 ug/dL; TOTAL IRON 117 ug/dL (49-151); UNBOUND IRON 31 ug/dL (112-346)
--- NOTE | 2019-05-06 19:42 | PROGRESS NOTE ---
DATE: 05/06/2019 INTERVAL HISTORY: No acute events overnight. SUBJECTIVE: Ms. Cameron is sitting in the chair about to have her dinner. Denies chest pain, shortness of breath, cough, nausea, vomiting, abdominal pain. She had a bowel movement. VITAL SIGNS: Temperature 97.4 degrees, pulse 105, respiratory rate 19, blood pressure 133/63. She is saturating 95% on 1 L nasal cannula. PHYSICAL EXAMINATION: General: Not in any acute distress. Oral cavity: Moist. I could not see any oral thrush. Lungs: Decreased air entry in bilateral lung lopez with inspiratory crackles, more pronounced on the left as compared to right. Adequate air entry on bilateral supramammary region. Cardiovascular: S1, S2 normal. Irregularly irregular. No murmur, rub, or gallop. Abdomen: Obese, soft, nontender. Extremities: Bilateral upper and lower extremity edema. Neurologic: She is alert and oriented x3. : She continues to have a urine catheter. LABS: Suggestive of WBC of 4.1, hemoglobin 7.4, platelets 55,000. BUN is 27, creatinine 1.2. MICROBIOLOGICAL DATA: No new data except stool occult blood test, which was performed for anemia, which was negative. ASSESSMENT AND PLAN: 1. Acute hypoxic respiratory failure, due to bilateral lower lobe pneumonia and large left-sided uncomplicated stage I parapneumonic effusion. Continue supplements, oxygen, intravenous Zosyn, and current dose of intravenous Lasix. Today is day 15 of antibiotics. I will change her antibiotics to oral. She would need outpatient CAT scan. 2. Myxedema coma, now improved. Continue current dose of levothyroxine, liothyronine, and oral hydrocortisone based on tomorrow's TSH. I will consider stopping liothyronine and hydrocortisone. 3. Anemia and thrombocytopenia. Previously, her serum iron level was low. Her vitamin B12 and folate levels were within normal limits. I will follow up with remaining iron panel tomorrow. Her fecal occult blood test has been negative. I will also follow up with heparin-induced thrombocytopenia workup, including platelet factor 4 antibodies, and will give her a transfusion as necessary. 4. Insulin-dependent diabetes mellitus type 2, with hypoglycemia. Her long-acting insulin has been stopped and since then her blood glucose has been largely within acceptable range. 5. Others. Her morbid obesity and chronic kidney disease stage 3 are currently stable. 6. Her linezolid has been stopped because of thrombocytopenia and anemia. DISPOSITION: Continue to monitor patient inside the hospital. Follow up with EKG for irregular heart rhythm on bedside monitor. Plan of care discussed with the patient. Her questions have been answered. Yesterday, I had a detailed discussion about plan of care with the patient's [id number] at bedside. Her questions have been answered. cc: Roland Multani MD
[2019-05-07] MEDS: HUMULIN R SUBQ SCH ×5 (06:30→20:23)
[2019-05-07] MEDS: SYNTHROID PO SCH (06:31)
[2019-05-07] MEDS: CYTOMEL PO SCH ×4 (06:31→21:33)
--- NOTE | 2019-05-07 07:48 | Diag Imaging Result Doc PS360 ---
CHEST-1 VIEW - 05/07/2019 INDICATION: SOB COMPARISON: 05/05/2019 FINDINGS: Stable moderate to large left pleural effusion with about two thirds of the hemithorax opacified. No right-sided effusion. Stable hazy pulmonary edema diffusely. Heart size is somewhat enlarged. IMPRESSION: No significant change from prior. Electronically signed by Omar Pedro 05/07/2019 7:46 AM
--- NOTE | 2019-05-07 08:08 | EKG Report ---
Test Performed on : 05/07/2019 07:34:31 AM Test Reason : AFIB Blood Pressure : / mmHG Vent. Rate : 079 BPM Atrial Rate : 079 BPM P-R Int : 162 ms QRS Dur : 130 ms QT Int : 418 ms P-R-T Axes : 061 -38 144 degrees QTc Int : 479 ms Sinus rhythm. with premature atrial complexes. Left axis deviation Left bundle branch block Abnormal ECG When compared with ECG of 20-APR-2019 09:39, Left bundle branch block is now present Criteria for Inferior infarct are no longer present Confirmed by Jimmy Lees MD ([id number]) on 05/09/2019 12:34:29 PM
[2019-05-07 08:33] LABS: BASO# 0.02 X1000 (0.0-0.2); BASO% 0.6 % (0.0-0.8); EOS# 0.22 X1000 (0.0-0.7); EOS% 6.4 % (0.0-10.0); HEMATOCRIT 22.6 % (37.0-47.0); HEMOGLOBIN 6.7 g/dL (12.0-16.0); LYMPH# 0.22 X1000 (1.2-3.4); LYMPH% 6.4 % (20.5-51.1); MCHC 29.6 g/dL (33-37); MCV 94.6 FL (81-99); MONO# 0.47 X1000 (0.11-0.59); MONO% 13.6 % (1.7-9.3); MPV 11.7 FL (7.4-10.4); NEUT# 2.52 X1000 (1.4-6.5); PLT 54 X1000 (130-400); RBC 2.39 XMIL (4.2-5.4); RDW 15.3 % (11.5-14.5); WBC 3.45 X1000 (4.8-10.8)
[2019-05-07 08:56] LABS: CREATININE 1.3 mg/dL (0.5-0.9); POTASSIUM 3.6 mmol/L (3.5-5.1)
[2019-05-07 08:57] LABS: FREE T4 1.05 ng/dL (0.93-1.70)
[2019-05-07 09:09] LABS: TSH 14.2 uIUmL (0.27-4.20)
[2019-05-07] MEDS: MYCOSTATIN POWDER TOP SCH ×2 (09:42→21:33)
[2019-05-07] MEDS: CORTEF PO SCH (09:42)
[2019-05-07] MEDS: PROTONIX PO SCH (09:42)
[2019-05-07] MEDS: MYCOSTATIN SUSP PO SCH ×3 (09:42→20:22)
[2019-05-07] MEDS: LASIX IV SCH ×2 (09:42→20:22)
[2019-05-07] MEDS: LEVAQUIN PO SCH (09:42)
[2019-05-07] MEDS: MIRALAX PO SCH ×2 (09:43→20:23)
[2019-05-07] MEDS: DULCOLAX PR SCH ×2 (09:43→20:22)
[2019-05-07] MEDS ORDERED: NS 500 ML IV ONE (11:12)
--- NOTE | 2019-05-07 17:07 | PROGRESS NOTE ---
DATE: 05/07/2019 INTERVAL HISTORY: No acute events overnight. SUBJECTIVE: Ms. Cameron denies new complaints. She denies chest pain or shortness of breath. She only has occasional cough. VITALS: Temperature 97.5 degrees, pulse 82, respiratory rate 19, blood pressure 132/53. Saturating 91% on 2 L nasal cannula. PHYSICAL EXAMINATION: General: Not in any acute distress. HEENT: Oral cavity is moist. I could not appreciate oral thrush. Respiratory: Adequate air entry, bilateral supramammary region. Decreased air entry, especially left hemithorax on examination on the back, she has decreased air entry with inspiratory crackles on right infrascapular region. Abdomen: Obese, soft, nontender. Cardiovascular: S1, S2 normal. Irregularly irregular without murmur, rub, or gallop. She has bilateral upper and lower extremity edema. She is alert and oriented x3. She has a urine catheter. Input and output yesterday, 900 mL. LABS: Suggestive of hemoglobin of 6.7, WBC 3.4, platelets 54,000. She had a BUN of 30, creatinine of 1.3. Her blood glucose is 135. Her TSH is improving. It is 14.20. Free T4 is normal. Microbiology: No new data. IMAGING: Chest x-ray this morning has no significant change from prior. ASSESSMENT AND PLAN: 1. Acute hypoxic respiratory failure due to bilateral lower lobe pneumonia and large left-sided uncomplicated stage I pleural effusion. Continue oxygen supplement, intravenous Lasix and oral antibiotic, which has been changed to levofloxacin. I will continue to address her volume overload and hypothyroidism. She would need outpatient CT scan in about 7 days time. 2. Myxedema coma, now improved. Continue oral levothyroxine, liothyronine. Her TSH had been responding appropriately. I will decrease hydrocortisone dose and taper it off. 3. Anemia and thrombocytopenia in the setting of use of linezolid in the past as well as frequent blood draws. Her heparin platelet factor 4 antibodies were unremarkable ruling out heparin- induced thrombocytopenia. I will give her 1 unit of packed red blood cells and follow up with blood count tomorrow. 4. Insulin-dependent diabetes mellitus type 2, currently in acceptable range continue sliding scale insulin. 5. Her morbid obesity and chronic kidney disease stage 3 are stable. She has been on nystatin for oral thrush, which is already improving. I will keep her on pantoprazole for steroid induced ulcer prophylaxis as well as MiraLAX to avoid constipation. DISPOSITION: Monitor patient inside the hospital. If she continues to do well, my plan is to discharge her hopefully on Friday to rehab. I called patient's daughter in law Ms. Johnson and discussed with her about patient's clinical condition including pleural effusion, thyroid and pneumonia and answered all of her questions. cc: Roland Multani MD MTDD
--- NOTE | 2019-05-07 18:31 | PROVIDER PROGRESS NOTE ---
Progress Note Progress Note Dr. Bailey Progress Note/Pulmonary and or critical care Subjective: The patient is lying in bed with no acute distress noted. She still complains of taste loss and generalized weakness. She dd not have physical therapy yesterday as she kept pending it. Patients [id number] at the bedside. Objective: Vital Signs: T 97.5, BP 132/53, SD 82, RR 19, and SaO2 91% on O2/NC @ 2L. Physical Examination: General: Morbidly obese. Lying in bed. No acute distress. Very pleasant and cooperative. HEENT: Normocephalic. Trachea midline. Mucosa pink and slightly dry. PERRL. Oropharynx clear. Chest: Even and unlabored. No increased work of breathing. Symmetrical excursion. RLL mild crackles with good air entry in the right lung. GUILLERMO clear with good air entry. LML and LLL significantly diminished air entry with coarse crackles. CVS: Regular rate and rhythm with S1 and S2 appreciated. Abdomen: Normoactive bowel sounds present. Soft. Nontender. Protuberant. Extremities: BLE pitting edema 1+ with compression hose on. No cyanosis. No clubbing. Neuro: A/O x3. Speech fluent. Follow commands. Dr. Bailey did assessment and management. KEVIN Moody did scribing only. Labs and Radiology: Laboratory Results 05/04/19 05/06/19 05/06/19 18:42 07:45 07:45 WBC RBC Hgb Hct MCV MCH MCHC RDW Std Deviation Plt Count MPV Immature Gran % (Auto) Neut % (Auto) Lymph % (Auto) [place] % (Auto) Eos % (Auto) Baso % (Auto) Immature Gran # (Auto) Neut # (Auto) Lymph # (Auto) [place] # (Auto) Eos # (Auto) Baso # (Auto) Sodium Potassium Chloride Carbon Dioxide Anion Gap BUN Creatinine Estimated GFR/1.73 m2 BUN/Creatinine Ratio Glucose POC Glucose Calculated Osmolality Calcium Iron 117 TIBC 148 % Saturation 79 Unsat Iron Binding 31 L Ferritin 1237 H TSH Free T4 Hep-Induced Plt Ab Ting SEE COMMENTS Blood Type Blood Type Confirm Antibody Screen Crossmatch 05/06/19 05/06/19 05/07/19 07:45 20:25 05:41 WBC RBC Hgb Hct MCV MCH MCHC RDW Std Deviation Plt Count MPV Immature Gran % (Auto) Neut % (Auto) Lymph % (Auto) [place] % (Auto) Eos % (Auto) Baso % (Auto) Immature Gran # (Auto) Neut # (Auto) Lymph # (Auto) [place] # (Auto) Eos # (Auto) Baso # (Auto) Sodium Potassium Chloride Carbon Dioxide Anion Gap BUN Creatinine Estimated GFR/1.73 m2 BUN/Creatinine Ratio Glucose POC Glucose 231 H D 135 H Calculated Osmolality Calcium Iron TIBC % Saturation Unsat Iron Binding Ferritin TSH Free T4 Hep-Induced Plt Ab Ting Blood Type Blood Type Confirm A POSITIVE Antibody Screen Crossmatch 05/07/19 05/07/19 05/07/19 08:15 08:15 08:15 WBC 3.45 L RBC 2.39 L Hgb 6.7 L Hct 22.6 L MCV 94.6 MCH 28.0 MCHC 29.6 L RDW Std Deviation 15.3 H Plt Count 54 L MPV 11.7 H Immature Gran % (Auto) 0.0 Neut % (Auto) 73.0 Lymph % (Auto) 6.4 L [place] % (Auto) 13.6 H Eos % (Auto) 6.4 Baso % (Auto) 0.6 Immature Gran # (Auto) 0.00 Neut # (Auto) 2.52 Lymph # (Auto) 0.22 L [place] # (Auto) 0.47 Eos # (Auto) 0.22 Baso # (Auto) 0.02 Sodium 137 Potassium 3.6 Chloride 89 L Carbon Dioxide 37 H Anion Gap 11 BUN 30 H Creatinine 1.3 H Estimated GFR/1.73 m2 39 BUN/Creatinine Ratio 23 Glucose 125 H POC Glucose Calculated Osmolality 281 Calcium 9.0 Iron TIBC % Saturation Unsat Iron Binding Ferritin TSH 14.20 H Free T4 1.05 Hep-Induced Plt Ab Ting Blood Type Blood Type Confirm Antibody Screen Crossmatch 05/07/19 08:17 WBC RBC Hgb Hct MCV MCH MCHC RDW Std Deviation Plt Count MPV Immature Gran % (Auto) Neut % (Auto) Lymph % (Auto) [place] % (Auto) Eos % (Auto) Baso % (Auto) Immature Gran # (Auto) Neut # (Auto) Lymph # (Auto) [place] # (Auto) Eos # (Auto) Baso # (Auto) Sodium Potassium Chloride Carbon Dioxide Anion Gap BUN Creatinine Estimated GFR/1.73 m2 BUN/Creatinine Ratio Glucose POC Glucose Calculated Osmolality Calcium Iron TIBC % Saturation Unsat Iron Binding Ferritin TSH Free T4 Hep-Induced Plt Ab Ting Blood Type A POSITIVE Blood Type Confirm Antibody Screen NEGATIVE Crossmatch See Detail Assessment: Acute on chronic hypoxemic respiratory failure secondary to pneumonia and left pleural effusion. Improved. Left pleural effusion. Repeat CT thorax w/o contrast on 04/28/29 shows slightly worse large left pleural effusion, improved left upper lobe pneumonia or pulmonary edema, slightly worse right pneumonia or pulmonary edema, stable left lower lobe atelectasis vs. pneumonia, slightly worsened left lower lobe atelectasis, slightly improved pericardial effusion, and slightly worsened anasarca. Pneumonia. Acute kidney injury on chronic kidney disease. Improving. UTI secondary to E. Coli. Severe normocytic anemia. Plan: Weaning oxygen as tolerated. Continue antibiotics Continue hydrocortisone and thyroid replacement for myxedema. We will suggest to continue current course with diuretic, antibiotic and thyroid placement. We will follow up radiographic imaging. Continue Nystatin for thrush. We encourage patient to use incentive spirometer routinely with deep breathing and coughing.
[2019-05-08] MEDS: HUMULIN R SUBQ SCH ×4 (06:06→21:30)
[2019-05-08] MEDS: SYNTHROID PO SCH (06:16)
[2019-05-08] MEDS: CYTOMEL PO SCH ×3 (06:16→21:29)
[2019-05-08 08:17] LABS: BASO# 0.01 X1000 (0.0-0.2); BASO% 0.3 % (0.0-0.8); EOS# 0.15 X1000 (0.0-0.7); EOS% 4.4 % (0.0-10.0); HEMATOCRIT 25.5 % (37.0-47.0); LYMPH# 0.24 X1000 (1.2-3.4); MCH 29.6 PG (27-31); MCHC 31.4 g/dL (33-37); MCV 94.4 FL (81-99); MONO# 0.64 X1000 (0.11-0.59); MONO% 18.7 % (1.7-9.3); NEUT# 2.38 X1000 (1.4-6.5); NEUT% 69.6 % (42.2-75.2); PLT 59 X1000 (130-400); RDW 15.3 % (11.5-14.5); WBC 3.42 X1000 (4.8-10.8)
[2019-05-08 08:23] LABS: CALCIUM 9.6 mg/dL (8.8-10.2); CREATININE 1.1 mg/dL (0.5-0.9); MAGNESIUM 2.4 mg/dL (1.5-2.7); POTASSIUM 3.7 mmol/L (3.5-5.1)
[2019-05-08] MEDS: PROTONIX PO SCH (09:59)
[2019-05-08] MEDS: CORTEF PO SCH (09:59)
[2019-05-08] MEDS: LASIX IV SCH ×2 (10:00→21:29)
[2019-05-08] MEDS: MYCOSTATIN SUSP PO SCH ×5 (10:00→21:29)
[2019-05-08] MEDS: LEVAQUIN PO SCH (10:00)
[2019-05-08] MEDS: MYCOSTATIN POWDER TOP SCH ×2 (10:01→21:29)
[2019-05-08] MEDS: MIRALAX PO SCH ×2 (10:01→21:30)
[2019-05-08] MEDS: DULCOLAX PR SCH ×2 (10:05→21:30)
--- NOTE | 2019-05-08 16:59 | PROVIDER PROGRESS NOTE ---
Progress Note Dr. Bailey Progress Note/Pulmonary and or critical care Subjective: The patient is lying in bed with no acute distress noted. She still complains generalized weakness . Patients [id number] at the bedside. Objective: Vital Signs: T 97.5, BP 132/48, VA 90, RR 18, and SaO2 99% on O2/NC @ 2L. Physical Examination: General: Morbidly obese. Lying in bed. No acute distress. Very pleasant and cooperative. HEENT: Normocephalic. Trachea midline. Mucosa pink and slightly dry. PERRL. Oropharynx clear. Chest: Even and unlabored. No increased work of breathing. Symmetrical excursion. RLL mild crackles with good air entry in the right lung. GUILLERMO clear with good air entry. LML and LLL significantly diminished air entry with coarse crackles. CVS: Regular rate and rhythm with S1 and S2 appreciated. Abdomen: Normoactive bowel sounds present. Soft. Nontender. Protuberant. Extremities: BLE pitting edema 1+ with compression hose on. No cyanosis. No clubbing. Neuro: A/O x3. Speech fluent. Follow commands. Dr. Bailey did assessment and management. KEVIN Moody did scribing only. Laboratory Results 05/07/19 05/07/19 05/08/19 08:17 19:53 05:26 WBC RBC Hgb Hct MCV MCH MCHC RDW Std Deviation Plt Count MPV Neut % (Auto) Lymph % (Auto) [place] % (Auto) Eos % (Auto) Baso % (Auto) Neut # (Auto) Lymph # (Auto) [place] # (Auto) Eos # (Auto) Baso # (Auto) Sodium Potassium Chloride Carbon Dioxide Anion Gap BUN Creatinine Estimated GFR/1.73 m2 BUN/Creatinine Ratio Glucose POC Glucose 192 H 143 H Calculated Osmolality Calcium Magnesium Crossmatch See Detail 05/08/19 05/08/19 05/08/19 07:34 07:34 11:03 WBC 3.42 L RBC 2.70 L Hgb 8.0 L D Hct 25.5 L MCV 94.4 MCH 29.6 MCHC 31.4 L RDW Std Deviation 15.3 H Plt Count 59 L MPV 11.0 H Neut % (Auto) 69.6 Lymph % (Auto) 7.0 L [place] % (Auto) 18.7 H Eos % (Auto) 4.4 Baso % (Auto) 0.3 Neut # (Auto) 2.38 Lymph # (Auto) 0.24 L [place] # (Auto) 0.64 H Eos # (Auto) 0.15 Baso # (Auto) 0.01 Sodium 137 Potassium 3.7 Chloride 90 L Carbon Dioxide 36 H Anion Gap 11 BUN 26 H Creatinine 1.1 H Estimated GFR/1.73 m2 47 BUN/Creatinine Ratio 24 Glucose 146 H POC Glucose 237 H D Calculated Osmolality 281 Calcium 9.6 Magnesium 2.4 Crossmatch 05/08/19 16:30 WBC RBC Hgb Hct MCV MCH MCHC RDW Std Deviation Plt Count MPV Neut % (Auto) Lymph % (Auto) [place] % (Auto) Eos % (Auto) Baso % (Auto) Neut # (Auto) Lymph # (Auto) [place] # (Auto) Eos # (Auto) Baso # (Auto) Sodium Potassium Chloride Carbon Dioxide Anion Gap BUN Creatinine Estimated GFR/1.73 m2 BUN/Creatinine Ratio Glucose POC Glucose 205 H Calculated Osmolality Calcium Magnesium Crossmatch Assessment: Acute on chronic hypoxemic respiratory failure secondary to pneumonia and left pleural effusion. Improved. Left pleural effusion. anasarca. Pneumonia. Acute kidney injury on chronic kidney disease. Improving. UTI secondary to E. Coli. Severe normocytic anemia. Plan: Weaning oxygen as tolerated. Continue antibiotics Continue hydrocortisone and thyroid replacement for myxedema. We will suggest to continue current course with diuretic, antibiotic and thyroid placement. We will follow up radiographic imaging. Continue Nystatin for thrush. We encourage patient to use incentive spirometer routinely with deep breathing and coughing.
--- NOTE | 2019-05-08 17:59 | PROGRESS NOTE ---
DATE: 05/08/2019 INTERVAL HISTORY: No acute events overnight. SUBJECTIVE: Ms. Cameron is sitting in the bed reading a book. She denies chest pain, shortness of breath, or cough. She denies nausea or vomiting. She could not remember if she already had lunch or not. VITALS: Temperature 97.5, pulse 95, respiratory rate 18, blood pressure 150/52, saturating 100% on 2 L nasal cannula. PHYSICAL EXAMINATION: Not in acute distress. Oral cavity is moist.Lungs: Air entry equal in bilateral supramammary regions and adequate. On examination from the back, she has significantly decreased air and air entry with inspiratory crackles in left hemithorax, decreased air entry with inspiratory crackles on right hemithorax as well. Cardiovascular: S1, S2 normal. Regular. No murmur or gallop. Abdomen: Obese, soft, nontender. Active bowel sounds. Bilateral ankle edema . : She has a urine catheter. Neurologic: She is alert oriented x3. LABS: Suggestive of WBC of 3.4, hemoglobin 8, platelets 59. BUN 26, creatinine 1.1. No new microbiological or imaging data. IMAGING: Chest x-ray yesterday morning had no significant change from prior. ASSESSMENT AND PLAN: 1. Acute hypoxic respiratory failure due to bilateral lower lobe pneumonia and left-sided pleural effusion. Continue oxygen supplementation, intravenous Lasix and oral Levaquin. Continue to address pleural effusion with antibiotics, hypothyroidism management as well as antibiotics. She will need a repeat outpatient CT scan in about 7 days. 2. Myxedema coma, clinically improved. Continue levothyroxine, liothyronine, and oral hydrocortisone, which I will taper off. 3. Anemia and thrombocytopenia in the setting of use of linezolid as well as frequent blood draws, status post 1 unit of packed red blood cell with appropriate rise in hemoglobin. I will recheck her hemoglobin tomorrow. Linezolid has been stopped. 4. Insulin-dependent diabetes mellitus type 2, currently in acceptable range on sliding-scale insulin. 5. Morbid obesity and chronic kidney disease stage 3, stable. Her oral thrush has resolved, and I will stop nystatin at the time of discharge. 6. Continue pantoprazole for stress ulcer prophylaxis due to steroids and MiraLAX to avoid constipation. She has been having regular bowel movements. DISPOSITION: I will monitor the patient on the floor over the weekend with potential plan to discharge on Friday. Plan of care discussed with the patient. Her questions have been answered. cc: Roland Multani MD
[2019-05-09] MEDS: CYTOMEL PO SCH ×4 (06:18→21:58)
[2019-05-09] MEDS: HUMULIN R SUBQ SCH ×4 (06:19→20:52)
[2019-05-09] MEDS: SYNTHROID PO SCH (06:19)
[2019-05-09 07:15] LABS: BASO# 0.03 X1000 (0.0-0.2); BASO% 0.7 % (0.0-0.8); EOS# 0.18 X1000 (0.0-0.7); EOS% 4.3 % (0.0-10.0); HEMATOCRIT 24.8 % (37.0-47.0); HEMOGLOBIN 7.5 g/dL (12.0-16.0); IMM GRAN# 0.02 X1000 (0.0-0.04); IMM GRAN% 0.5 % (0.0-0.5); LYMPH# 0.47 X1000 (1.2-3.4); LYMPH% 11.4 % (20.5-51.1); MCH 28.8 PG (27-31); MCHC 30.2 g/dL (33-37); MCV 95.4 FL (81-99); MONO# 0.82 X1000 (0.11-0.59); MONO% 19.8 % (1.7-9.3); MPV 11.5 FL (7.4-10.4); NEUT# 2.62 X1000 (1.4-6.5); NEUT% 63.3 % (42.2-75.2); PLT 74 X1000 (130-400); WBC 4.14 X1000 (4.8-10.8)
[2019-05-09 07:25] LABS: CALCIUM 9.3 mg/dL (8.8-10.2); CREATININE 1.1 mg/dL (0.5-0.9); POTASSIUM 3.9 mmol/L (3.5-5.1)
[2019-05-09] MEDS: LASIX IV SCH (09:58)
[2019-05-09] MEDS: CORTEF PO SCH (09:58)
[2019-05-09] MEDS: LEVAQUIN PO SCH (09:58)
[2019-05-09] MEDS: PROTONIX PO SCH (09:58)
[2019-05-09] MEDS: MIRALAX PO SCH (09:59)
[2019-05-09] MEDS: DULCOLAX PR SCH (09:59)
[2019-05-09] MEDS: MYCOSTATIN POWDER TOP SCH ×2 (09:59→20:52)
[2019-05-09] MEDS: MYCOSTATIN SUSP PO SCH ×4 (09:59→20:52)
--- NOTE | 2019-05-09 14:20 | PROGRESS NOTE ---
DATE: 05/09/2019 INTERVAL HISTORY: No acute events overnight. SUBJECTIVE: Ms. Cameron is sitting in the bed. Denies any chest pain, shortness of breath, cough, nausea, vomiting. She was not able to remember if her family visited her or not. She is not in acute distress. VITALS: Temperature 98.3 degrees, pulse 94, respiratory 16, blood pressure 135/112, she is saturating 98 to 100 percent on 2 L nasal cannula. Input and output suggests -1.5 L yesterday. OBJECTIVE: She has hoarseness of voice and slow movement. Oral cavity is moist without any oral thrush. She has adequate entry on right hemithorax with inspiratory crackles infrascapular region. Adequate air entry on left supramammary region however on back examination she had decreased air entry on left hemithorax. S1, S2 normal. No murmur, rub or gallop.Abdomen: Soft, nontender. She has bilateral lower extremity and upper extremity edema. She has urine catheter. She is alert and oriented x3. LABS: Suggestive of WBC of 4.1, hemoglobin of 7.5, platelet of 74,000, BUN 25, creatinine 1.1. Microbiology no new data. No new imaging. ASSESSMENT AND PLAN: 1. Acute hypoxic respiratory failure due to bilateral lower lobe pneumonia and left-sided pleural effusion. 2. Myxedema coma due to untreated hypothyroidism. 3. Anemia, thrombocytopenia and leukopenia, pancytopenia likely in the setting of linezolid use. 4. 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 5. Morbid obesity and chronic kidney disease stage 3. PLAN: 1. Continue oxygen, oral levofloxacin and change Lasix from intravenous to oral route. I will discontinue Sellers catheter. 2. I will taper down and discontinue liothyronine as well as hydrocortisone while I continue current dose of levothyroxine. She would need outpatient TSH and free T4 monitoring. 3. Her hemoglobin and platelet count are stable after the blood transfusion she had received yesterday. I will follow up with CBC tomorrow. DISPOSITION: If patient's blood count remained stable my plan will be to discharge her to rehab hopefully tomorrow. Plan of care discussed with patient. Her questions have been answered. cc: Roland Multani MD
[2019-05-09] MEDS: LASIX PO SCH (18:04)
--- NOTE | 2019-05-09 19:04 | PROVIDER PROGRESS NOTE ---
Progress Note Dr. Bailey Progress Note/Pulmonary and or critical care Subjective: The patient is lying in bed with no acute distress noted. She still complains generalized weakness . Patients [id number] at the bedside. Objective: Vital Signs: T 98.5, BP 134/41, AL 97, RR 18, and SaO2 99% on O2/NC @ 2L. Physical Examination: General: Morbidly obese. Lying in bed. No acute distress. Very pleasant and cooperative. HEENT: Normocephalic. Trachea midline. Mucosa pink and slightly dry. PERRL. Oropharynx clear. Chest: Even and unlabored. No increased work of breathing. Symmetrical excursion. RLL mild crackles with good air entry in the right lung. GUILLERMO clear with good air entry. LML and LLL significantly diminished air entry with coarse crackles. CVS: Regular rate and rhythm with S1 and S2 appreciated. Abdomen: Normoactive bowel sounds present. Soft. Nontender. Protuberant. Extremities: BLE pitting edema 1+ with compression hose on. No cyanosis. No clubbing. Neuro: A/O x3. Speech fluent. Follow commands. Dr. Bailey did assessment and management. KEVIN Moody did scribing onl LABS/Radiology Laboratory Results 05/08/19 05/09/19 05/09/19 19:16 05:34 06:40 WBC RBC Hgb Hct MCV MCH MCHC RDW Std Deviation Plt Count MPV Immature Gran % (Auto) Neut % (Auto) Lymph % (Auto) [place] % (Auto) Eos % (Auto) Baso % (Auto) Immature Gran # (Auto) Neut # (Auto) Lymph # (Auto) [place] # (Auto) Eos # (Auto) Baso # (Auto) Sodium 140 Potassium 3.9 Chloride 91 L Carbon Dioxide 40 H Anion Gap 9 BUN 25 H Creatinine 1.1 H Estimated GFR/1.73 m2 47 BUN/Creatinine Ratio 23 Glucose 154 H POC Glucose 223 H 162 H Calculated Osmolality 287 Calcium 9.3 05/09/19 05/09/19 05/09/19 06:40 10:15 16:15 WBC 4.14 L RBC 2.60 L Hgb 7.5 L Hct 24.8 L MCV 95.4 MCH 28.8 MCHC 30.2 L RDW Std Deviation 15.0 H Plt Count 74 L MPV 11.5 H Immature Gran % (Auto) 0.5 Neut % (Auto) 63.3 Lymph % (Auto) 11.4 L [place] % (Auto) 19.8 H Eos % (Auto) 4.3 Baso % (Auto) 0.7 Immature Gran # (Auto) 0.02 Neut # (Auto) 2.62 Lymph # (Auto) 0.47 L [place] # (Auto) 0.82 H Eos # (Auto) 0.18 Baso # (Auto) 0.03 Sodium Potassium Chloride Carbon Dioxide Anion Gap BUN Creatinine Estimated GFR/1.73 m2 BUN/Creatinine Ratio Glucose POC Glucose 223 H 212 H Calculated Osmolality Calcium Assessment: Acute on chronic hypoxemic respiratory failure secondary to pneumonia and left pleural effusion. Improved. Left pleural effusion. anasarca. Pneumonia. Acute kidney injury on chronic kidney disease. Improving. UTI secondary to E. Coli. Severe normocytic anemia. Plan: Weaning oxygen as tolerated. Continue antibiotics Continue hydrocortisone and thyroid replacement for myxedema. We will suggest to continue current course with diuretic, antibiotic and thyroid placement. We will follow up radiographic imaging. Continue Nystatin for thrush. We encourage patient to use incentive spirometer routinely with deep breathing and coughing.
[2019-05-09] MEDS ORDERED: DULCOLAX PR SCH (21:00)
[2019-05-10] MEDS: HUMULIN R SUBQ SCH ×2 (06:00→12:11)
[2019-05-10] MEDS: SYNTHROID PO SCH (06:11)
[2019-05-10] MEDS: LASIX PO SCH (06:11)
--- NOTE | 2019-05-10 06:48 | Diag Imaging Result Doc PS360 ---
CHEST-1 VIEW - 05/10/2019 INDICATION: SOB COMPARISON: 05/09/2019 FINDINGS: Stable opacification of the left lung base. Stable cardiomegaly and pulmonary vascular congestion. There has been some improvement in the interstitial infiltrates/pulmonary edema. IMPRESSION: Mild improvement from prior. Electronically signed by Omar Pedro 05/10/2019 6:46 AM
[2019-05-10 08:21] LABS: HEMATOCRIT 23.8 % (37.0-47.0); HEMOGLOBIN 7.1 g/dL (12.0-16.0); MCH 28.5 PG (27-31); MCHC 29.8 g/dL (33-37); MCV 95.6 FL (81-99); MPV 10.7 FL (7.4-10.4); PLT 83 X1000 (130-400); RBC 2.49 XMIL (4.2-5.4); RDW 14.9 % (11.5-14.5); WBC 3.93 X1000 (4.8-10.8)
[2019-05-10 08:27] LABS: LYMPHS 14 % (21-51); MONO 5 % (1-9); SEGS 81 % (42-75)
[2019-05-10] MEDS: CORTEF PO SCH (09:50)
[2019-05-10] MEDS: MYCOSTATIN POWDER TOP SCH (09:51)
[2019-05-10] MEDS: MYCOSTATIN SUSP PO SCH ×2 (09:51→12:11)
[2019-05-10] MEDS: PROTONIX PO SCH (09:51)
[2019-05-10] MEDS: MIRALAX PO SCH ×2 (09:51→09:57)
[2019-05-10] MEDS: LEVAQUIN PO SCH (09:51)
--- NOTE | 2019-05-10 11:20 | PROGRESS NOTE ---
DATE: 05/10/2019 INTERVAL HISTORY: No acute events overnight. SUBJECTIVE: Ms. Cameron was dozing at the time of my encounter. She easily woke up with verbal stimuli. She denies any chest pain, shortness of breath. We discussed about possible rehab discharge plan this morning. I answered all of her questions. OBJECTIVE: Current Vital Signs: Temperature 97.9 degrees, pulse 81, respiratory rate 17, blood pressure 109/41, she is saturating 100% on 1 L nasal cannula. General: She is not in any acute distress. HEENT: Oral cavity is moist. Lungs: Air entry appears decreased on the left hemithorax. Inspiratory crackles on right infrascapular region. Cardiovascular: S1, S2 normal. No murmur or gallop. Abdomen: Obese, soft, nontender. Extremities: She has bilateral upper and lower extremity edema. Input and output suggest -700 mL yesterday. LABORATORY DATA: Decreasing hemoglobin to 7.1. Her platelets are improving to 83,000. No BMP today. MICROBIOLOGY: No new microbiological data. IMAGING: Chest x-ray performed in the morning time suggests mild interval improvement from prior. ASSESSMENT: 1. Acute hypoxic respiratory failure due to bilateral lower lobe pneumonia and left-sided pleural effusion. 2. Myxedema coma due to untreated hypothyroidism. 3. Anemia, thrombocytopenia, leukopenia, and pancytopenia in the setting of linezolid use. Fecal occult blood test was unremarkable. Her WBC and platelet count have been improving. She continues to have slight drop in hemoglobin. 4. 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 5. Morbid obesity and chronic kidney disease stage 3. PLAN: 1. She is status post liothyronine and hydrocortisone. I will continue current dose of levothyroxine. She would need repeat TSH in about 2 weeks' time to make sure her TSH continues to drop. 2. I will continue her on oral antibiotics for the next 7 to 10 days, as well as oral Lasix. She would need a repeat CBC and BMP in the next 5 days' time. 3. She would need a repeat CT scan in about 1 week's time, and have an outpatient Pulmonology followup. 4. Disposition. I will repeat CBC this afternoon. If that is stable, likely discharge to rehab. cc: Roland Multani MD
[2019-05-10 13:15] LABS: BASO# 0.05 X1000 (0.0-0.2); EOS# 0.18 X1000 (0.0-0.7); EOS% 3.7 % (0.0-10.0); HEMATOCRIT 24.6 % (37.0-47.0); HEMOGLOBIN 7.3 g/dL (12.0-16.0); IMM GRAN# 0.03 X1000 (0.0-0.04); IMM GRAN% 0.6 % (0.0-0.5); LYMPH# 0.61 X1000 (1.2-3.4); LYMPH% 12.6 % (20.5-51.1); MCH 28.3 PG (27-31); MCHC 29.7 g/dL (33-37); MCV 95.3 FL (81-99); MONO# 0.42 X1000 (0.11-0.59); MONO% 8.7 % (1.7-9.3); MPV 10.8 FL (7.4-10.4); NEUT# 3.56 X1000 (1.4-6.5); NEUT% 73.4 % (42.2-75.2); PLT 80 X1000 (130-400); RBC 2.58 XMIL (4.2-5.4); RDW 14.9 % (11.5-14.5); WBC 4.85 X1000 (4.8-10.8)
--- NOTE | 2019-05-10 14:42 | DISCHARGE SUMMARY ---
ADMISSION DATE: 04/20/2019 DISCHARGE DATE: 05/10/2019 DISCHARGE DISPOSITION: Rehab. DISCHARGE CONDITION: Hemodynamically stable. The patient is alert, is able to follow commands, engaging in conversation. She is eating by mouth. Her TSH has been trending down. DISCHARGE DIAGNOSES: 1. Acute hypoxic respiratory failure. 2. Left lower lobe pneumonia. 3. Left-sided large pleural effusion as a combination of volume overload, hypothyroidism, and parapneumonic effusion. 4. Pancytopenia with anemia, thrombocytopenia, and leukopenia, likely in the setting of linezolid use. 5. Noninsulin-dependent diabetes mellitus type 2 with hyperglycemia. 6. Morbid obesity. 7. Chronic kidney disease stage 3. 8. Sepsis due to left lower lobe pneumonia. 9. Escherichia coli acute cystitis without hematuria. 10. Hypotension due to multiple antihypertensive medication use. 11. Acute kidney injury on chronic kidney disease stage 3. 12. Pericardial effusion. 13. Moderate pulmonary hypertension. 14. Morbid obesity. OTHER DIAGNOSES: 1. Acute encephalopathy on presentation due to myxedema coma. 2. Elevated troponin, likely in the setting of sepsis and pneumonia. 3. History of essential hypertension. 4. History of chronic anemia. 5. History of cervical spinal stenosis. DISCHARGE MEDICATIONS: 1. Metformin 500 mg with supper. 2. Dulcolax suppository 10 mg per rectal every nighttime, hold if the patient had a bowel movement in the last 12 hours. 3. Furosemide 40 mg every 12 hours. 4. Levaquin 500 mg daily for 7 days. 5. MiraLAX 17 grams daily, hold if the patient develops diarrhea. 6. Pantoprazole 40 mg daily. 7. Levothyroxine 100 mcg daily. 8. Multivitamin Thera M Plus tablet 1 tablet daily. FOLLOWUP INSTRUCTIONS: 1. Repeat CBC and CMP in 3 days to monitor for anemia and thrombocytopenia, and also monitor for signs of bleeding. 2. Repeat TSH and free T4 in 7 to 10 days for myxedema coma. 3. Repeat CT scan of thorax without contrast in 7 days to assess the progression of left pleural effusion. 4. Follow up with animal husbandman, Dr. Bailey, in 7 days to discuss about CT scan of the chest results. PHYSICAL EXAMINATION: Current Vital Signs: Temperature of 97.9 degrees, pulse 81, respiratory rate 17, blood pressure 119/41, saturating 100% on 1 L nasal cannula. HEENT: Oral cavity is moist. Mild conjunctival pallor. No cyanosis, clubbing, or icterus. Lungs: Decreased air entry on left hemithorax, especially infrascapular and inframammary region. Adequate air entry on left supramammary region. Adequate air entry on right hemithorax. Inspiratory crackles in bilateral infrascapular region. Heart: S1, S2 normal. No murmur, rub, or gallop. Abdomen: Obese, soft, nontender. Extremities: Bilateral upper and lower extremity edema. Neurologic: Ms. Cameron is alert. She is oriented to herself. She could tell me her date. She was partially oriented with the situation, and could tell that she had a thyroid problem and that she was supposed to go to rehab today. She was able to participate in physical therapy. LABORATORY DATA: Latest labs show WBC 3.9, hemoglobin 7.1, platelets 83,000. BUN 25, creatinine 1.1, sodium 140, potassium 3.9, carbon dioxide 40, blood glucose 144. TSH is 14, free T4 is 1.05. Iron panel suggests ferritin of 1237, iron saturation of 79%, serum iron of 117, total iron- binding capacity of 148. MICROBIOLOGY: Influenza screen on presentation was negative. Urine culture on 04/20/2019 had Escherichia coli, which was sensitive to all antibiotics. Stool occult blood test on 05/06/2019 was negative. SIGNIFICANT IMAGING DURING HOSPITAL ADMISSION: 1. Chest x-ray on 04/19/2019 had cardiomegaly, pulmonary edema, and left pleural effusion with underlying infiltrate. 2. Head CT on 04/19/2019 had chronic microvascular ischemic changes and severe vascular calcification of both carotid and vertebral arteries. 3. Echocardiogram on 04/20/2019 had mild aortic valve sclerosis without stenosis, moderate mitral stenosis with mild mitral regurgitation, [id number] concentric left ventricular hypertrophy with ejection fraction of 70%, severe left atrial enlargement, small posterior pericardial effusion without echocardiographic evidence of hemodynamic significance, and left pleural effusion. 4. Chest CT on 04/20/2019 had cardiomegaly, large pericardial effusion that has enlarged from prior, severe calcification of mitral valve annulus, dense infiltrate in the left lung suggestion of pneumonia and small left pleural effusion, minimal pulmonary edema at lung bases. 5. Chest x-ray on 05/10/2019 had mild improvement from prior. CONSULTATIONS DURING HOSPITAL ADMISSION: 1. Pulmonary, Dr. Bailey. 2. Cardiology, Dr. Nino. HOSPITAL COURSE SUMMARY: Ms. Cameron is an 89-year-old, lady with a past medical history of essential hypertension, noninsulin-dependent diabetes mellitus, who presented on 04/20/2019 with a chief complaint of confusion. In the emergency room, the patient was found to have a temperature of 99.6 degrees, pulse of 80, respiratory rate of 18, blood pressure 166/64, and oxygen saturation of 92% on room air. Her initial labs had suggested WBC of 9.3, hemoglobin of 8.5, platelet count of 363,000. She had creatinine of 1.2. Her head CT was unremarkable for acute pathology. She was diagnosed with sepsis due to UTI, and acute congestive heart failure leading to volume overload, and was admitted for further management, including intravenous antibiotics and intravenous Lasix. While inside the hospital, the patient was also found to have myxedema, and her TSH was as high as 53, with free T4 as low as 0.47. Her free T3 was found to be undetectable. She was started on intravenous levothyroxine, oral liothyronine, and intravenous hydrocortisone, and was admitted to ICU for further management. With thyroid replacement, her TSH started coming down, and her latest TSH has been 14. She has been off hydrocortisone and liothyronine. She should continue levothyroxine and have repeat TSH in about 7 to 10 days. Her volume overload was thought to be related to acute diastolic congestive heart failure in the setting of severe hypothyroidism, and it got better with intravenous Lasix. She should continue oral Lasix, and get a repeat BMP in about 3 to 5 days' time. She should also have outpatient Cardiology followup in about 2 weeks' time. She was found to have large left-sided pleural effusion and acute hypoxic respiratory failure due to left lower lobe pneumonia. Her pleural effusion was thought to be related to parapneumonic effusion, severe hypothyroidism, and volume overload, and Pulmonology was on board. The plan was to continue antibiotics, Lasix, and get repeat CT scan about 7 days after discharge, and have outpatient Pulmonary followup. Initially, radiologist had attempted thoracentesis, but it was unsuccessful due to too little fluid, and later on after discussing the risks associated with thoracentesis procedure and possibility of recurrence due to her hypothyroidism and volume overload, it was decided to not perform the procedure. The patient was breathing well on 1 to 2 L nasal cannula. Plan is for the patient to be discharged to rehab, and continue physical therapy. Her anemia and thrombocytopenia were thought to be related to linezolid use, so it was stopped, after which her platelet count had started recovering. She received 1 unit of packed red blood cell transfusion so far. She should follow up with CBC in 3 days, and continue multivitamin. 45 minutes were spent discharging this patient. Plan of care was extensively discussed with the patient and the patient's [id number] on the phone. All of their questions have been answered. cc: Roland Multani MD
[2019-05-10 15:42] VITALS: BP 126/67
--- NOTE | 2019-05-10 17:55 | PROVIDER PROGRESS NOTE ---
Progress Note Dr. Bailey Progress Note/Pulmonary and or critical care Subjective: The patient is lying in bed with no acute distress noted. She still complains of taste loss and generalized weakness. She appears a little bit loss this morning. She states she doesnt know what is going on at this time. No family at the bedside. Objective: Vital Signs: T 97.9, BP 119/41, NJ 81, RR 17, and SaO2 100% on NC 2L. Physical Examination: General: Morbidly obese. Lying in bed. No acute distress. Very pleasant and cooperative. HEENT: Normocephalic. Trachea midline. Mucosa pink and slightly dry. PERRL. Oropharynx clear. Chest: Even and unlabored. No increased work of breathing. Symmetrical excursion. RLL mild crackles with good air entry in the right lung. LML and LLL significantly diminished air entry with coarse crackles. CVS: Regular rate and rhythm with S1 and S2 appreciated. Abdomen: Normoactive bowel sounds present. Soft. Nontender. Protuberant. Extremities: BLE pitting edema 1+ with compression hose on. No cyanosis. No clubbing. Neuro: A/O x3. Speech fluent. Follow commands. Labs and Radiology: Laboratory Results 05/09/19 05/10/19 05/10/19 20:01 05:16 07:35 WBC 3.93 L RBC 2.49 L Hgb 7.1 L Hct 23.8 L MCV 95.6 MCH 28.5 MCHC 29.8 L RDW Std Deviation 14.9 H Plt Count 83 L MPV 10.7 H Immature Gran % (Auto) Neut % (Auto) Not Reportable Lymph % (Auto) Not Reportable [place] % (Auto) Not Reportable Eos % (Auto) Not Reportable Baso % (Auto) Not Reportable Immature Gran # (Auto) Neut # (Auto) Not Reportable Lymph # (Auto) Not Reportable [place] # (Auto) Not Reportable Eos # (Auto) Not Reportable Baso # (Auto) Not Reportable Segmented Neutrophils 81 H Lymphocytes 14 L Monocytes 5 POC Glucose 181 H 144 H 05/10/19 05/10/19 05/10/19 11:43 12:25 15:52 WBC 4.85 RBC 2.58 L Hgb 7.3 L Hct 24.6 L MCV 95.3 MCH 28.3 MCHC 29.7 L RDW Std Deviation 14.9 H Plt Count 80 L MPV 10.8 H Immature Gran % (Auto) 0.6 H Neut % (Auto) 73.4 Lymph % (Auto) 12.6 L [place] % (Auto) 8.7 Eos % (Auto) 3.7 Baso % (Auto) 1.0 H Immature Gran # (Auto) 0.03 Neut # (Auto) 3.56 Lymph # (Auto) 0.61 L [place] # (Auto) 0.42 Eos # (Auto) 0.18 Baso # (Auto) 0.05 Segmented Neutrophils Lymphocytes Monocytes POC Glucose 218 H D 181 H Assessment: Acute on chronic hypoxemic respiratory failure secondary to pneumonia and left pleural effusion. Improved. Left pleural effusion. Repeat CT thorax w/o contrast on 04/28/29 shows slightly worse large left pleural effusion, improved left upper lobe pneumonia or pulmonary edema, slightly worse right pneumonia or pulmonary edema, stable left lower lobe atelectasis vs. pneumonia, slightly worsened left lower lobe atelectasis, slightly improved pericardial effusion, and slightly worsened anasarca. CXR today shows mild improvement. Pneumonia. Acute kidney injury on chronic kidney disease. Improving. UTI secondary to E. Coli. Pancytopenia. Hgb 7.1 this morning. Plan: Weaning oxygen as tolerated. Continue antibiotic Levaquin. On Day 4. Continue hydrocortisone and thyroid replacement for myxedema. We will suggest to continue current course with diuretic, antibiotic and thyroid placement. Continue Nystatin for thrush. We encourage patient to use incentive spirometer routinely with deep breathing and coughing. Ok to be discharge from a document examiner standpoint. We recommend outpatient document examiner follow up.
[2019-05-11] MEDS ORDERED: THERA M PLUS PO SCH (09:00)
== END 2019-05-10 17:26 | DRG 871 ==
LOC: ED 21:01 → 2N 04-20 03:34 → SUATTDRO 04-20 03:34 → 4N 04-22 10:13 → ICU 04-26 21:10 → 3N 04-28 20:01
PROVIDERS: ATTEND Internal Medicine